=== PATIENT | male | born 1935 | race Caucasian/White ===

== ENCOUNTER 2022-12-06 20:50 | Inpatient (IN) ==
[2022-12-06 22:02] LABS: Basophils # (auto) 0.02 K/uL (0-0.2); Basophils % (auto) 0.2 %; Eosinophils # (auto) 0.02 K/uL (0-0.50); Eosinophils % (auto) 0.2 %; Hemoglobin 9.2 g/dl (14.0-18.0); Immature Granulocytes # (auto) 0.02 K/uL (0.01-0.20); Immature Granulocytes % (auto) 0.2 %; Lymphocytes # (auto) 1.01 K/uL (1.2-3.4); Lymphocytes % (auto) 12.6 %; Mean Corpuscular Hemoglobin 28.8 pg (25.0-34.0); Mean Corpuscular Hgb Conc 32.9 g/dL (32.0-36.0); Mean Corpuscular Volume 87.8 fL (80.0-100.0); Monocytes # (auto) 0.42 K/uL (0.11-0.59); Monocytes % (auto) 5.2 %; Neutrophils # (auto) 6.52 K/uL (1.40-6.50); Neutrophils % (auto) 81.6 %; Platelet Count 235 K/uL (130-400); RDW Coefficient of Variation 13.5 % (11.5-14.5); RDW Standard Deviation 43.5 fL (36.4-46.3); Red Blood Count 3.19 M/uL (4.70-6.10); White Blood Count 8.01 K/ul (4.8-10.8)
[2022-12-06 22:09] LABS: Alanine Aminotransferase 15 U/L (7-52); Albumin Globulin Ratio 1.2 (0.9-2); Alkaline Phosphatase 36 U/L (34-104); Anion Gap 7 (3-11); Aspartate Aminotransferase 16 U/L (13-39); BUN Creatinine Ratio 15.1 (10-20); Bilirubin,Total 0.8 mg/dl (0.2-1.0); Blood Urea Nitrogen 30 mg/dl (6-23); Carbon Dioxide 22 mmol/L (21-32); Chloride 110 mmol/L (98-107); Est GFR (African American) 33.5 ml/min; Est GFR (Non-African American) 28.9 ml/min; Globulin 2.5 gm/dl (2.5-4.0); Glucose 112 mg/dl (70-99(Fasting)); Sodium 139 mmol/L (136-145); Total Protein 5.5 gm/dl (6.0-8.3)
--- NOTE | 2022-12-06 22:17 | Emergency Department Note ---
Impression & Plan Small bowel perforation, Urinary retention, Free intraperitoneal air, Abdominal pain ED Provider Note NAME: NEVIN STATON AGE: 87 SEX: M : 1935 ARRIVES VIA: Walk-In INFORMANT: [Patient][, ] ED PROVIDER(S): [Fabrice Harris MD] CHIEF COMPLAINT: Abdominal pain, inability to urinate MEDICAL DECISION MAKING: Patient presented due to concern with abdominal pain and inability to urinate. The patient has had some prior issues in the past. Patient did have a bladder scan performed which showed 300 cc of urine. Barker catheter was placed. Upon subsequent reexamination of the abdomen he still had abdominal pain so the patient did have a CT of the abdomen pelvis performed. The patient CT the abdomen pelvis did show concern for bowel perforation. The patient was ordered IV Zosyn and blood cultures. Patient's initial blood counts did show a normal white count with a hemoglobin of 9. The patient's platelet count was unremarkable. Kidney function with creatinine 1.9 which is more or less at baseline. Calcium slightly low at 8. Urinalysis without evidence of obvious infection in the patient's Barker catheter was draining well. Initial lactate of 0.8. I did speak with on-call general surgery Dr. Alfonso who did come to evaluate the patient. I subsequently did speak with the on-call medicine service Dr. Silva. The patient was admitted to the medicine service Prior /Outside records reviewed: [none] Differential diagnosis: Appendicitis, testicular torsion, infections, diverticulitis, UTI, obstruction, mesenteric ischemia, aortic pathology, inflammatory bowel disease, renal colic, PUD, pancreatitis, biliary pathology, hernia, volvulus, constipation, as well as other pathologies. Diagnostics, as interpreted by me: ECG: [none] Cardiac monitoring: An order was placed for continuous cardiac monitoring. The monitor shows a rate of [] with [] rhythm. [Patient was placed on pulse oximetry] Medical decision rules: [none] Imaging studies: See below HPI: Patient presents due to concern for inability to urinate since last evening. The patient does complain of associated abdominal pain. No recent falls or trauma. The patient is a prior issues with urinary retention and states that in the past he did have some sort of problem which subsequently resulted in a procedure. The patient does complain of abdominal pain that is relatively diffuse but more prominent in suprapubic area. No fevers or chills chest pains or shortness of breath. The patient does not take anything for symptoms at home. Patient typically urinates without any issues. No reported blood in the urine or stool. PAST MEDICAL HISTORY: [See Below] PAST SURGICAL HISTORY: [See Below] SOCIAL HISTORY: [See Below] HOME MEDICATIONS: [See Below] ALLERGIES: [See Below] VITALS: [See Below] PHYSICAL EXAMINATION: GENERAL: NAD, non-toxic. Wearing glasses, hard of hearing. EYE EXAM: Normal conjunctiva. PERRL, no anisocoria and EOM's grossly intact w/o pain. NECK: Supple, no nuchal rigidity, no adenopathy, non-tender. No signs of meningismus. FROM of the neck with good chin to chest and neck extension. No stridor. LUNGS: Clear to auscultation. Normal chest wall mechanics. HEART: NSR, no MRG. ABDOMEN: Abdomen soft, mild diffuse discomfort throughout most prominent in the suprapubic area, no masses, no rebound or guarding. BACK: No CVA TTP. SKIN: No rashes and no bruising. UPPER EXTREMITIES: Upper extremities are grossly normal. LOWER EXTREMITIES: Grossly normal, no edema. NEURO EXAM: A&O x3, cranial nerves II-XII grossly intact, normal speech, moves all 4 extremities. Past Med/Surg History Medical History (Updated 12/11/22 @ 15:00 by Fabrice Harris MD) Carotid artery disease Encounter for pre-operative examination Free intraperitoneal air Hypertension Surgical History (Updated 12/11/22 @ 15:00 by Fabrice Harris MD) No pertinent past surgical history Social History Smoking Status: Former smoker Do You Dip or Chew Tobacco: No; Hx Alcohol Use: Yes Alcohol type: beer, wine and hard liquor Hx Substance Use: No Preferred Language: Luxembourgish Communication Ability: Effective [employer] Required: No Beliefs That Will Affect Care: None Current Living Situation: Alone Current Living Situation Comment: Pt lives alone. Daughter, Parker, lives close by. Other Information That Helps Us Care for You: No Feels Safe at Home: Yes Safety Concerns: Feels Safe At This Time Assistive Devices: None Allergies Allergies Allergy/AdvReac Type Severity Reaction Status Date / Time Iodinated Contrast Media Allergy Unknown renal Verified 12/06/22 22:08 complications Home Meds Home Medications Medication Instructions Recorded Confirmed aspirin 81 mg chewable tablet 81 mg PO DAILY 12/06/22 12/06/22 atorvastatin 80 mg tablet 80 mg PO DAILY 12/06/22 12/06/22 clopidogrel 75 mg tablet 75 mg PO DAILY 12/06/22 12/06/22 ezetimibe 10 mg tablet 10 mg PO DAILY 12/06/22 12/06/22 metoprolol succinate 25 mg 12.5 mg PO QAM 12/06/22 12/06/22 tablet,extended release 24 hr multivitamin 1 tab PO DAILY 12/06/22 12/06/22 nitroglycerin 0.4 mg sublingual 0.4 mg sublingual UD PRN Chest Pain 12/06/22 12/06/22 tablet tamsulosin 0.4 mg capsule 0.4 mg PO QAM 12/06/22 12/06/22 Previous Rx's Medication Instructions Recorded sulfamethoxazole 800 1 tab PO Q24H 5 days #5 tabs 12/11/22 mg-trimethoprim 160 mg tablet (Bactrim DS) Results & Data (ED) Vital Signs Vital Signs - 24 hr 12/06/22 21:12 12/06/22 22:08 Temperature 36.5 C Temperature Source Temporal Artery Scan Pulse Rate 104 H Pulse Rate [Finger] 70 Pulse Rhythm [Finger] Regular Pulse Strength [Finger] Normal Respiratory Rate 18 20 Respiratory Effort / Characteristics Non-Labored Spontaneous Respiratory Depth Normal Respiratory Pattern Regular Blood Pressure 83/51 L Blood Pressure [Left Arm] 123/64 Blood Pressure Mean 61 Blood Pressure Mean [Left Arm] 83 Pulse Oximetry 93 Oxygen Delivery Method Room Air Room Air Sepsis Recent Fever Within 48 Hours No Sepsis New/Unexplained Change in Mental Status No Sepsis Action Taken by Nursing No Action Required Home Medications Current Medication List: was personally reviewed by me Laboratory Data Attestation: I reviewed the patient's lab results. 12/06/22 21:28 12/06/22 21:28 Lab Results 12/06/22 12/06/22 12/06/22 Range/Units 21:28 21:28 22:43 WBC 8.01 (4.8-10.8) K/ul RBC 3.19 L (4.70-6.10) M/uL Hgb 9.2 L (14.0-18.0) g/dl Hct 28.0 L (42.0-52.0) % MCV 87.8 (80.0-100.0) fL MCH 28.8 (25.0-34.0) pg MCHC 32.9 (32.0-36.0) g/dL RDW Std Deviation 43.5 (36.4-46.3) fL RDW Coeff of Gloria 13.5 (11.5-14.5) % Plt Count 235 (130-400) K/uL MPV 10.0 (9.4-12.4) fL Immature Gran % (Auto) 0.2 % Neut % (Auto) 81.6 % Lymph % (Auto) 12.6 % [place] % (Auto) 5.2 % Eos % (Auto) 0.2 % Baso % (Auto) 0.2 % Neut # (Auto) 6.52 H (1.40-6.50) K/uL Lymph # (Auto) 1.01 L (1.2-3.4) K/uL [place] # (Auto) 0.42 (0.11-0.59) K/uL Eos # (Auto) 0.02 (0-0.50) K/uL Baso # (Auto) 0.02 (0-0.2) K/uL Immature Gran # (Auto) 0.02 (0.01-0.20) K/uL Sodium 139 (136-145) mmol/L Potassium 4.0 (3.5-5.1) mmol/L Chloride 110 H (98-107) mmol/L Carbon Dioxide 22 (21-32) mmol/L Anion Gap 7 (3-11) BUN 30 H (6-23) mg/dl Creatinine 1.99 H (0.6-1.4) mg/dl Est Cr Clr Drug Dosing Not Reportable Est GFR ( Amer) 33.5 ml/min Est GFR (Non-Af Amer) 28.9 ml/min BUN/Creatinine Ratio 15.1 (10-20) Glucose 112 H (70-99(Fasting)) mg/dl Estimat Average Glucose mg/dl Hemoglobin A1c (4.5-5.6) % Lactate (0.4-2.0) mmol/L Calcium 8.0 L (8.6-10.3) mg/dl Magnesium 1.8 (1.7-2.4) mg/dl Total Bilirubin 0.8 (0.2-1.0) mg/dl AST 16 (13-39) U/L ALT 15 (7-52) U/L Alkaline Phosphatase 36 (34-104) U/L Total Protein 5.5 L (6.0-8.3) gm/dl Albumin 3.0 L (3.4-5.0) gm/dl Globulin 2.5 (2.5-4.0) gm/dl Albumin/Globulin Ratio 1.2 (0.9-2) Urine Color Yellow Urine Appearance Clear (Clear) Urine pH 5.5 (4.5-7.5) Ur Specific [place] 1.020 (1.000-1.030) Urine Protein Trace H (Negative) Urine Glucose (UA) Negative (Negative) Urine Ketones Negative (Negative) Urine Blood Trace H (Negative) Urine Nitrite Negative (Negative) Urine Bilirubin Negative (Negative) Urine Urobilinogen Negative (Negative) Ur Leukocyte Esterase Negative (Negative) Urine WBC (Auto) 0 (0-5) /hpf Urine RBC (Auto) 0-4 (0-4) /hpf U Hyaline Cast (Auto) 1-5 (0-5) /lpf U Epithel Cells (Auto) 0-5 (0-5) /lpf Urine Bacteria (Auto) Negative (Negative) Blood Type Antibody Screen 12/07/22 12/07/22 12/07/22 Range/Units 00:26 00:26 00:26 WBC (4.8-10.8) K/ul RBC (4.70-6.10) M/uL Hgb (14.0-18.0) g/dl Hct (42.0-52.0) % MCV (80.0-100.0) fL MCH (25.0-34.0) pg MCHC (32.0-36.0) g/dL RDW Std Deviation (36.4-46.3) fL RDW Coeff of Gloria (11.5-14.5) % Plt Count (130-400) K/uL MPV (9.4-12.4) fL Immature Gran % (Auto) % Neut % (Auto) % Lymph % (Auto) % [place] % (Auto) % Eos % (Auto) % Baso % (Auto) % Neut # (Auto) (1.40-6.50) K/uL Lymph # (Auto) (1.2-3.4) K/uL [place] # (Auto) (0.11-0.59) K/uL Eos # (Auto) (0-0.50) K/uL Baso # (Auto) (0-0.2) K/uL Immature Gran # (Auto) (0.01-0.20) K/uL Sodium (136-145) mmol/L Potassium (3.5-5.1) mmol/L Chloride (98-107) mmol/L Carbon Dioxide (21-32) mmol/L Anion Gap (3-11) BUN (6-23) mg/dl Creatinine (0.6-1.4) mg/dl Est Cr Clr Drug Dosing Est GFR ( Amer) ml/min Est GFR (Non-Af Amer) ml/min BUN/Creatinine Ratio (10-20) Glucose (70-99(Fasting)) mg/dl Estimat Average Glucose 111 mg/dl Hemoglobin A1c 5.5 (4.5-5.6) % Lactate 0.8 (0.4-2.0) mmol/L Calcium (8.6-10.3) mg/dl Magnesium (1.7-2.4) mg/dl Total Bilirubin (0.2-1.0) mg/dl AST (13-39) U/L ALT (7-52) U/L Alkaline Phosphatase (34-104) U/L Total Protein (6.0-8.3) gm/dl Albumin (3.4-5.0) gm/dl Globulin (2.5-4.0) gm/dl Albumin/Globulin Ratio (0.9-2) Urine Color Urine Appearance (Clear) Urine pH (4.5-7.5) Ur Specific [place] (1.000-1.030) Urine Protein (Negative) Urine Glucose (UA) (Negative) Urine Ketones (Negative) Urine Blood (Negative) Urine Nitrite (Negative) Urine Bilirubin (Negative) Urine Urobilinogen (Negative) Ur Leukocyte Esterase (Negative) Urine WBC (Auto) (0-5) /hpf Urine RBC (Auto) (0-4) /hpf U Hyaline Cast (Auto) (0-5) /lpf U Epithel Cells (Auto) (0-5) /lpf Urine Bacteria (Auto) (Negative) Blood Type A Negative Antibody Screen NEGATIVE Administered Medications Discontinued Medications Acetaminophen (Acetaminophen 325 Mg Tab) 650 mg PO Q6H PRN PRN Reason: Fever/pain Stop: 01/06/23 08:19 Last Admin: 12/09/22 15:42 Dose: 650 mg Documented By: DOMI Aspirin (Aspirin 81 Mg Chew) 81 mg PO DAILY MANI Stop: 01/06/23 08:59 Last Admin: 12/11/22 07:48 Dose: 81 mg Documented By: Admin: 12/10/22 09:17 Dose: 81 mg Documented By: Admin: 12/09/22 08:27 Dose: 81 mg Documented By: Admin: 12/08/22 12:38 Dose: 81 mg Documented By: Admin: 12/07/22 10:43 Dose: 81 mg Documented By: GURU Atorvastatin Calcium (Atorvastatin 40 Mg Tab) 80 mg PO DAILY [facility] Stop: 01/06/23 08:59 Last Admin: 12/11/22 07:45 Dose: 80 mg Documented By: Admin: 12/10/22 09:10 Dose: 80 mg Documented By: Admin: 12/09/22 08:25 Dose: 80 mg Documented By: Admin: 12/08/22 12:37 Dose: 80 mg Documented By: Admin: 12/07/22 10:42 Dose: 80 mg Documented By: GURU Bupivacaine HCl (Bupivacaine 0.5 % 5 Mg/1 Ml Mpf 30ml Vial) Confirm Administered Dose 30 ml .ROUTE .STK-MED ONE Stop: 12/07/22 02:01 Last Admin: 12/07/22 04:31 Dose: 30 ml Documented By: ROBERT Clopidogrel Bisulfate (Clopidogrel Bisulfate 75 Mg Tab) 75 mg PO DAILY [facility] Stop: 01/06/23 08:59 Last Admin: 12/11/22 07:45 Dose: 75 mg Documented By: Admin: 12/10/22 09:10 Dose: 75 mg Documented By: Admin: 12/09/22 08:24 Dose: 75 mg Documented By: Admin: 12/08/22 12:35 Dose: 75 mg Documented By: Admin: 12/07/22 10:43 Dose: 75 mg Documented By: GURU Ezetimibe (Ezetimibe 10 Mg Tablet) 10 mg PO DAILY MANI Stop: 01/06/23 08:59 Last Admin: 12/11/22 07:45 Dose: 10 mg Documented By: Admin: 12/10/22 09:11 Dose: 10 mg Documented By: Admin: 12/09/22 08:24 Dose: 10 mg Documented By: Admin: 12/08/22 12:38 Dose: 10 mg Documented By: Admin: 12/07/22 10:42 Dose: 10 mg Documented By: GURU Hydromorphone HCl (Hydromorphone Inj 0.5 Mg/0.5 Ml Syr) 0.25 mg IV Q6H PRN PRN Reason: Pain Stop: 12/21/22 00:35 Last Admin: 12/07/22 18:48 Dose: 0.25 mg Documented By: Admin: 12/07/22 05:43 Dose: 0.25 mg Documented By: DARREN Piperacillin Sod/Tazobactam Sod (Zosyn) 4.5 gm in 120 mls @ 240 mls/hr IV NOW STA; Protocol Stop: 12/07/22 00:46 Last Infusion: 12/07/22 01:38 Dose: 0 mls/hr Documented By: Admin: 12/07/22 00:38 Dose: 240 mls/hr Documented By: ERIKA Sodium Chloride (Nss 1000ml) 1,000 mls @ 200 mls/hr IV .Q5H ONE Stop: 12/07/22 06:17 Last Admin: 12/07/22 06:36 Dose: Not Given Documented By: DARREN Sodium Chloride (Nss 1000ml) 1,000 mls @ 100 mls/hr IV .Q10H ONE Stop: 12/07/22 11:18 Last Infusion: 12/07/22 06:36 Dose: 0 mls/hr Documented By: Admin: 12/07/22 05:29 Dose: 100 mls/hr Documented By: DARREN Piperacillin Sod/Tazobactam (Sod 4.5 gm/ Dextrose) 120 mls @ 30 mls/hr IV Q8H MANI; Protocol Stop: 12/17/22 07:59 Last Infusion: 12/09/22 10:34 Dose: 0 mls/hr Documented By: Admin: 12/09/22 08:23 Dose: 30 mls/hr Documented By: Infusion: 12/09/22 04:16 Dose: 0 mls/hr Documented By: Admin: 12/09/22 00:04 Dose: 30 mls/hr Documented By: JAyo Infusion: 12/08/22 19:54 Dose: 0 mls/hr Documented By: Admin: 12/08/22 15:44 Dose: 30 mls/hr Documented By: Infusion: 12/08/22 12:01 Dose: 0 mls/hr Documented By: Admin: 12/08/22 08:01 Dose: 30 mls/hr Documented By: Infusion: 12/08/22 04:32 Dose: 0 mls/hr Documented By: Admin: 12/07/22 23:45 Dose: 30 mls/hr Documented By: Infusion: 12/07/22 21:45 Dose: 0 mls/hr Documented By: Admin: 12/07/22 17:45 Dose: 30 mls/hr Documented By: Infusion: 12/07/22 11:56 Dose: 0 mls/hr Documented By: Admin: 12/07/22 07:40 Dose: 30 mls/hr Documented By: ES Sodium Chloride (Nss 1000ml) 1,000 mls @ 75 mls/hr IV .[id number] MANI Stop: 01/06/23 06:16 Last Infusion: 12/09/22 07:17 Dose: 0 mls/hr Documented By: Infusion: 12/08/22 20:23 Dose: 0 mls/hr Documented By: Admin: 12/08/22 08:02 Dose: 75 mls/hr Documented By: Infusion: 12/08/22 08:02 Dose: 75 mls/hr Documented By: Admin: 12/07/22 18:44 Dose: 75 mls/hr Documented By: Infusion: 12/07/22 18:44 Dose: 75 mls/hr Documented By: Admin: 12/07/22 06:36 Dose: 75 mls/hr Documented By: AMB Ceftriaxone Sodium 2,000 mg/ (Dextrose) 70 mls @ 140 mls/hr IV Q24H MANI; Protocol Stop: 12/19/22 10:59 Last Admin: 12/10/22 12:09 Dose: Not Given Documented By: Infusion: 12/09/22 11:31 Dose: 0 mls/hr Documented By: Admin: 12/09/22 10:38 Dose: 140 mls/hr Documented By: DOMI Metronidazole (Flagyl) 500 mg in 100 mls @ 100 mls/hr IV Q8H [facility]; Protocol Stop: 12/19/22 15:59 Last Infusion: 12/10/22 10:28 Dose: 0 mls/hr Documented By: Admin: 12/10/22 09:10 Dose: 100 mls/hr Documented By: Infusion: 12/10/22 00:11 Dose: 0 mls/hr Documented By: JUSTINA(2) Admin: 12/09/22 23:11 Dose: 100 mls/hr Documented By: JUSTINA(2) Infusion: 12/09/22 16:53 Dose: 0 mls/hr Documented By: Admin: 12/09/22 15:35 Dose: 100 mls/hr Documented By: DOMI Lidocaine HCl (Lidocaine 2% Jelly 5 Ml Tube) 10 ml EXT NOW ONE Stop: 12/06/22 22:27 Last Admin: 12/06/22 22:50 Dose: 10 ml Documented By: ERIKA Menthol (Cough Drop (Sugar Free) Danica 24 Danica/1 Box) Confirm Administered Dose 24 danica BUCCAL .STK-MED ONE Stop: 12/08/22 12:20 Last Admin: 12/08/22 13:37 Dose: 24 danica Documented By: YOLI Metoprolol Succinate (Metoprolol Succ 25mg Ext Rel Tab) 12.5 mg PO QAM [facility] Stop: 01/06/23 08:59 Last Admin: 12/11/22 07:44 Dose: 12.5 mg Documented By: Admin: 12/10/22 09:10 Dose: 12.5 mg Documented By: Admin: 12/09/22 08:24 Dose: 12.5 mg Documented By: Admin: 12/08/22 12:35 Dose: 12.5 mg Documented By: Admin: 12/07/22 10:42 Dose: 12.5 mg Documented By: GURU Metoprolol Tartrate (Metoprolol Tartrate 1 Mg/Ml Vial) 2.5 mg IV Q6 [facility] Stop: 01/06/23 05:59 Last Admin: 12/07/22 07:08 Dose: 2.5 mg Documented By: DARREN Multivitamins (Multivitamin Tab) 1 tab PO DAILY MANI Stop: 01/06/23 08:59 Last Admin: 12/11/22 07:45 Dose: 1 tab Documented By: Admin: 12/10/22 09:10 Dose: 1 tab Documented By: Admin: 12/09/22 08:24 Dose: 1 tab Documented By: Admin: 12/08/22 12:37 Dose: 1 tab Documented By: Admin: 12/07/22 10:42 Dose: 1 tab Documented By: GURU Tamsulosin HCl (Tamsulosin Hcl 0.4 Mg Cap) 0.4 mg PO QAM [facility] Stop: 01/06/23 08:59 Last Admin: 12/11/22 07:44 Dose: 0.4 mg Documented By: Admin: 12/10/22 09:10 Dose: 0.4 mg Documented By: Admin: 12/09/22 08:25 Dose: 0.4 mg Documented By: Admin: 12/08/22 12:37 Dose: 0.4 mg Documented By: Admin: 12/07/22 10:42 Dose: 0.4 mg Documented By: GURU Tramadol HCl (Tramadol Hcl 50 Mg Tablet) 25 - 50 mg PO Q4H PRN PRN Reason: Pain Stop: 01/06/23 08:19 Last Admin: 12/07/22 10:41 Dose: 50 mg Documented By: GURU Trimethoprim/Sulfamethoxazole (Sulfamethoxazole/Trimethoprim Ds 800/160mg Tab) 1 tab PO Q24H [facility] Stop: 12/20/22 12:59 Last Admin: 12/11/22 10:42 Dose: 1 tab Documented By: Admin: 12/10/22 12:58 Dose: 1 tab Documented By: DOMI Imaging Data Radiologist's Impression: Abdomen/Pelvis CT 12/06/22 23:01 CR Exam(s): CT ABDOMEN + PELVIS Without Contrast EXAM: CT Abdomen and Pelvis Without Intravenous Contrast CLINICAL HISTORY: Reason for exam: recent urinary retention s/p Barker, single kidney. TECHNIQUE: Axial computed tomography images of the abdomen and pelvis without intravenous contrast. Automated exposure control was utilized for the study. A dose lowering technique was utilized adhering to the principles of ALARA. COMPARISON: No relevant prior studies available. FINDINGS: Lung bases: Unremarkable. No mass. No consolidation. ABDOMEN: Liver: Unremarkable. Gallbladder and bile ducts: Unremarkable. No calcified stones. No ductal dilation. Pancreas: Unremarkable. No ductal dilation. Spleen: Unremarkable. No splenomegaly. Adrenals: Unremarkable. No mass. Kidneys and ureters: Right nephrectomy. Stomach and bowel: Unremarkable. No obstruction. No mucosal thickening. PELVIS: Appendix: No findings to suggest acute appendicitis. Bladder: Barker catheter terminates in the urinary bladder. No stones. Reproductive: Unremarkable as visualized. ABDOMEN and PELVIS: Intraperitoneal space: Free air in the abdomen, concerning for gastrointestinal perforation. Small bowel in the right lower quadrant demonstrates wall thickening and surrounding inflammation, concerning for perforation site. Surgical evaluation recommended. No significant fluid collection. Bones/joints: Degenerative changes of the spine. No acute fracture. No dislocation. Soft tissues: Unremarkable. Vasculature: Atherosclerotic changes of the aorta. No abdominal aortic aneurysm. Lymph nodes: Unremarkable. No enlarged lymph nodes. IMPRESSION: Free air in the abdomen, concerning for gastrointestinal perforation. Small bowel in the right lower quadrant demonstrates wall thickening and surrounding inflammation, concerning for perforation site. Surgical evaluation recommended. Communications: Call Doctor Other Electronically signed by: Danny Nichols MD 12/06/22 23:39 PM Chest X-Ray 12/07/22 00:09 XR chest 1V portable HISTORY: renal failure COMPARISON: Abdomen and pelvis CT 12/06/2022. FINDINGS: No pneumothorax. No pleural effusions. There is mild elevation the right hemidiaphragm. The heart is mildly enlarged. No focal lung consolidations to suggest a pneumonia. No evidence for pulmonary edema. No pleural effusions. No pneumothorax. A right carotid stent is partially visualized. IMPRESSION: Mild cardiomegaly. Otherwise, no acute process within the chest. ACT 112: Negative or not required by law. Electronically signed by: Yosvany Salazar M.D. 12/07/2022 8:39 AM Discharge Plan Visit Data Chief Complaint: Unable to Void Stated Complaint: UNABLE TO VOID, CONFUSION, HIGH RISK FOR STROKE ED Provider: Fabrice Harris Discharge Problem: Small bowel perforation, Urinary retention, Free intraperitoneal air, Abdominal pain Patient Disposition: Admitted As Inpatient Discharge Instructions Interventions: ED Discharge Assessment Last Done: 12/07/22 01:58
[2022-12-06] MEDS ORDERED: LIDOCAINE 2% JELLY 5 ML TUBE EXT ONE (22:26)
[2022-12-06 22:53] LABS: Appearance Urine Clear (Clear); Bacteria Urine Automated Negative (Negative); Bilirubin Urine Negative (Negative); Blood Urine Trace (Negative); Color Urine Yellow; Epithelial Cell Urine Auto 0-5 /lpf (0-5); Glucose Urine UA Negative (Negative); Ketones Urine Negative (Negative); Leukocyte Esterase Urine Negative (Negative); Nitrite Urine Negative (Negative); Protein Urine Trace (Negative); RBC Urine Automated 0-4 /hpf (0-4); Urobilinogen Urine Negative (Negative); WBC Urine Automated 0 /hpf (0-5); pH Urine 5.5 (4.5-7.5)
--- NOTE | 2022-12-06 23:41 | CT Scan Report ---
Exam(s): CT ABDOMEN + PELVIS Without Contrast EXAM: CT Abdomen and Pelvis Without Intravenous Contrast CLINICAL HISTORY: Reason for exam: recent urinary retention s/p Barker, single kidney. TECHNIQUE: Axial computed tomography images of the abdomen and pelvis without intravenous contrast. Automated exposure control was utilized for the study. A dose lowering technique was utilized adhering to the principles of ALARA. COMPARISON: No relevant prior studies available. FINDINGS: Lung bases: Unremarkable. No mass. No consolidation. ABDOMEN: Liver: Unremarkable. Gallbladder and bile ducts: Unremarkable. No calcified stones. No ductal dilation. Pancreas: Unremarkable. No ductal dilation. Spleen: Unremarkable. No splenomegaly. Adrenals: Unremarkable. No mass. Kidneys and ureters: Right nephrectomy. Stomach and bowel: Unremarkable. No obstruction. No mucosal thickening. PELVIS: Appendix: No findings to suggest acute appendicitis. Bladder: Barker catheter terminates in the urinary bladder. No stones. Reproductive: Unremarkable as visualized. ABDOMEN and PELVIS: Intraperitoneal space: Free air in the abdomen, concerning for gastrointestinal perforation. Small bowel in the right lower quadrant demonstrates wall thickening and surrounding inflammation, concerning for perforation site. Surgical evaluation recommended. No significant fluid collection. Bones/joints: Degenerative changes of the spine. No acute fracture. No dislocation. Soft tissues: Unremarkable. Vasculature: Atherosclerotic changes of the aorta. No abdominal aortic aneurysm. Lymph nodes: Unremarkable. No enlarged lymph nodes. IMPRESSION: Free air in the abdomen, concerning for gastrointestinal perforation. Small bowel in the right lower quadrant demonstrates wall thickening and surrounding inflammation, concerning for perforation site. Surgical evaluation recommended. Communications: Call Doctor Other Electronically signed by: Danny Nichols MD 12/06/22 23:39 PM
[2022-12-06] MEDS ORDERED: PIPERACILLIN/TAZOBACTAM 4.5 GM in DEXTROSE 5% 100 ML IV STA (23:52)
[2022-12-07] MEDS ORDERED: PIPERACILLIN/TAZOBACTAM 4.5 GM/120 ML BAG IV STA (00:17)
--- NOTE | 2022-12-07 00:31 | History & Physical Report ---
Date of Service December 07, 2022 Assessment & Plan (1) Hypotension: Plan: Transient hypotension possibly from hypovolemia secondary to bowel perforation No overt sepsis for now chronic diastolic heart failure (EF 58%, TTE 2019), patient on the dry side valvular heart disease (mild to moderate /mild MR) carotid artery disease status post stent/endarterectomy hyperlipidemia on statin Rx RCCA status post surgery history laryngeal cancer status post radiation CRI, creatinine at baseline chronic anemia, hemoglobin at baseline Hyperglycemia rule out DM past tobacco abuse PCU given transient hypotension IVF Zosyn N.p.o. General surgery consultation RE perforated bowel (Patient currently being seen by Dr. Alfonso at the ER.) Check hemoglobin A1c DVT prophylaxis. SCD RE possible surgery Recommend pharmacologic anticoagulation with heparin subcu once bleeding risk is deemed to be minimal and negligible pending Surgery evaluation. Full code Patient daughter requesting updates from providers. Ms. Parker Curiel, contact #[phone]. Text document was generated using [employer] voice recognition software. It may contain grammatical or spelling errors. Kindly contact undersigned for clarification of any documentation item in question. History of Present Illness Chief Complaint: Abdominal pain Primary Care Provider: Ryan Butler DO History obtained from patient, family, and records. Medical history significant for chronic diastolic heart failure (EF 58%, TTE 2020), valvular heart disease (mild to moderate /mild MR), carotid artery disease status post stent/endarterectomy, hypertension, hyperlipidemia, RCCA status post surgery, history laryngeal cancer status post radiation, CRI (baseline creatinine 1.7-2), chronic anemia (baseline hemoglobin of 9), past tobacco abuse. 2 nights ago, patient experienced achy lower abdominal pain with diarrhea after coming home from a celebration. Patient not sure if there was blood in the stools. Patient denies headache, chest pain, SOB. Patient consulted ER for worsening symptoms. IV Zosyn administered for perforated bowel on CT. Initial SBP at the ER noted to be 80s. SBP currently 120s. Medical History as above Surgical History : Nephrectomy right, cataract surgeries, vascular procedure, endarterectomy Family History : Heart disease, lung cancer Personal/Social history : Past tobacco abuse, occasional EtOH intake, retired [employer] employee Allergies Allergy/AdvReac Type Severity Reaction Status Date / Time Iodinated Contrast Media Allergy Unknown renal Verified 12/06/22 22:08 complications Home Medications Medication Instructions Recorded Confirmed Type aspirin 81 mg chewable tablet 81 mg PO DAILY 12/06/22 12/06/22 History atorvastatin 80 mg tablet 80 mg PO DAILY 12/06/22 12/06/22 History clopidogrel 75 mg tablet 75 mg PO DAILY 12/06/22 12/06/22 History ezetimibe 10 mg tablet 10 mg PO DAILY 12/06/22 12/06/22 History metoprolol succinate 25 mg 12.5 mg PO QAM 12/06/22 12/06/22 History tablet,extended release 24 hr multivitamin 1 tab PO DAILY 12/06/22 12/06/22 History nitroglycerin 0.4 mg sublingual 0.4 mg sublingual UD PRN Chest Pain 12/06/22 12/06/22 History tablet tamsulosin 0.4 mg capsule 0.4 mg PO QAM 12/06/22 12/06/22 History Past Med/Surg History Medical History (Updated 12/07/22 @ 08:28 by Lawrence Silva MD) Carotid artery disease Encounter for pre-operative examination Free intraperitoneal air Hypertension Social History Smoking Status: Former smoker Do You Dip or Chew Tobacco: No; Hx Alcohol Use: Yes Alcohol type: beer, wine and hard liquor Hx Substance Use: No Preferred Language: Welsh Communication Ability: Effective Lining Presser Required: No Beliefs That Will Affect Care: None Current Living Situation: Alone Current Living Situation Comment: Pt lives alone. Daughter, Parker, lives close by. Other Information That Helps Us Care for You: No Feels Safe at Home: Yes Safety Concerns: Feels Safe At This Time Assistive Devices: Denture - Upper, Denture - Lower, Glasses and Hearing Aid - Bilateral Review of Systems Review of Systems: As per HPI, all other systems reviewed and negative Physical Exam Physical Exam: GENERAL: Comfortable, hard of hearing, dysphonic (chronic), looks younger than stated age, no respiratory distress SKIN: Pallor, warm HEENT: Bespectacled, pale palpebral conjunctivae, no ptosis, dry buccal mucosa NECK : Supple, no tenderness CHEST : CTA, no tenderness HEART : RRR, systolic murmur ABDOMEN: Some distention, hypogastric tenderness EXTREMITIES : No LE swelling/tenderness, no other conspicuous deformities noted NEUROLOGIC : Coherent, no facial asymmetry, hard of hearing, chronic dysphonia, no other gross focality Results & Data Results & Data Vital Signs (Past 12 Hours) Vital Signs Temp Pulse Pulse Resp BP BP Pulse Ox 12/06/22 22:08 70 20 123/64 93 12/06/22 21:12 36.5 C 104 H 18 83/51 L O2 Del Method 12/06/22 22:08 Room Air 12/06/22 21:12 Room Air Laboratory Results Laboratory Results WBC 8.01 K/ul (4.8-10.8) 12/06/22 21: RBC 3.19 M/uL (4.70-6.10) L 12/06/22 21: Hgb 9.2 g/dl (14.0-18.0) L 12/06/22: Hct 28.0 % (42.0-52.0) L 12/06/22 21: MCV 87.8 fL (80.0-100.0) 12/06/22 21: MCH 28.8 pg (25.0-34.0) 12/06/22 21: MCHC 32.9 g/dL (32.0-36.0) 12/06/22: RDW Std Deviation 43.5 fL (36.4-46.3) 12/06/22: RDW Coeff of Gloria 13.5 % (11.5-14.5) 12/06/22 21: Plt Count 235 K/uL (130-400) 12/06/22: MPV 10.0 fL (9.4-12.4) 12/06/22 21: Immature Gran % (Auto) 0.2 % 12/06/22 21: Neut % (Auto) 81.6 % 12/06/22 21: Lymph % (Auto) 12.6 % 12/06/22: [place] % (Auto) 5.2 % 12/06/22 21: Eos % (Auto) 0.2 % 12/06/22 21: Baso % (Auto) 0.2 % 12/06/22: Neut # (Auto) 6.52 K/uL (1.40-6.50) H 12/06/22 21:28 Lymph # (Auto) 1.01 K/uL (1.2-3.4) L 12/06/22 21:28 [place] # (Auto) 0.42 K/uL (0.11-0.59) 12/06/22 21:28 Eos # (Auto) 0.02 K/uL (0-0.50) 12/06/22 21:28 Baso # (Auto) 0.02 K/uL (0-0.2) 12/06/22 21: Immature Gran # (Auto) 0.02 K/uL (0.01-0.20) 12/06/22 21: Sodium 139 mmol/L (136-145) 12/06/22 21: Potassium 4.0 mmol/L (3.5-5.1) 12/06/22: Chloride 110 mmol/L (98-107) H 12/06/22: Carbon Dioxide 22 mmol/L (21-32) 12/06/22: Anion Gap 7 (3-11) 12/06/22 21: BUN 30 mg/dl (6-23) H 12/06/22 21: Creatinine 1.99 mg/dl (0.6-1.4) H 12/06/22: Est Cr Clr Drug Dosing Not Reportable 12/06/22: Est GFR ( Amer) 33.5 ml/min 12/06/22: Est GFR (Non-Af Amer) 28.9 ml/min 12/06/22 21: BUN/Creatinine Ratio 15.1 (10-20) 12/06/22 21: Glucose 112 mg/dl (70-99(Fasting)) H 12/06/22: Calcium 8.0 mg/dl (8.6-10.3) L 12/06/22: Total Bilirubin 0.8 mg/dl (0.2-1.0) 12/06/22: AST 16 U/L (13-39) 12/06/22 21: ALT 15 U/L (7-52) 12/06/22 21: Alkaline Phosphatase 36 U/L (34-104) 12/06/22 21: Total Protein 5.5 gm/dl (6.0-8.3) L 12/06/22 21:28 Albumin 3.0 gm/dl (3.4-5.0) L 12/06/22 21:28 Globulin 2.5 gm/dl (2.5-4.0) 12/06/22 21:28 Albumin/Globulin Ratio 1.2 (0.9-2) 12/06/22 21:28 Urine Color Yellow 12/06/22 22:43 Urine Appearance Clear (Clear) 12/06/22 22:43 Urine pH 5.5 (4.5-7.5) 12/06/22 22:43 Ur Specific [place] 1.020 (1.000-1.030) 12/06/22 22:43 Urine Protein Trace (Negative) H 12/06/22 22:43 Urine Glucose (UA) Negative (Negative) 12/06/22 22:43 Urine Ketones Negative (Negative) 12/06/22 22:43 Urine Blood Trace (Negative) H 12/06/22 22:43 Urine Nitrite Negative (Negative) 12/06/22 22:43 Urine Bilirubin Negative (Negative) 12/06/22 22:43 Urine Urobilinogen Negative (Negative) 12/06/22 22:43 Ur Leukocyte Esterase Negative (Negative) 12/06/22 22:43 Urine WBC (Auto) 0 /hpf (0-5) 12/06/22 22:43 Urine RBC (Auto) 0-4 /hpf (0-4) 12/06/22 22:43 U Hyaline Cast (Auto) 1-5 /lpf (0-5) 12/06/22 22:43 U Epithel Cells (Auto) 0-5 /lpf (0-5) 12/06/22 22:43 Urine Bacteria (Auto) Negative (Negative) 12/06/22 22:43 Impressions Abdomen/Pelvis CT 12/06/22 23:01 CR Exam(s): CT ABDOMEN + PELVIS Without Contrast EXAM: CT Abdomen and Pelvis Without Intravenous Contrast CLINICAL HISTORY: Reason for exam: recent urinary retention s/p Barker, single kidney. TECHNIQUE: Axial computed tomography images of the abdomen and pelvis without intravenous contrast. Automated exposure control was utilized for the study. A dose lowering technique was utilized adhering to the principles of ALARA. COMPARISON: No relevant prior studies available. FINDINGS: Lung bases: Unremarkable. No mass. No consolidation. ABDOMEN: Liver: Unremarkable. Gallbladder and bile ducts: Unremarkable. No calcified stones. No ductal dilation. Pancreas: Unremarkable. No ductal dilation. Spleen: Unremarkable. No splenomegaly. Adrenals: Unremarkable. No mass. Kidneys and ureters: Right nephrectomy. Stomach and bowel: Unremarkable. No obstruction. No mucosal thickening. PELVIS: Appendix: No findings to suggest acute appendicitis. Bladder: Barker catheter terminates in the urinary bladder. No stones. Reproductive: Unremarkable as visualized. ABDOMEN and PELVIS: Intraperitoneal space: Free air in the abdomen, concerning for gastrointestinal perforation. Small bowel in the right lower quadrant demonstrates wall thickening and surrounding inflammation, concerning for perforation site. Surgical evaluation recommended. No significant fluid collection. Bones/joints: Degenerative changes of the spine. No acute fracture. No dislocation. Soft tissues: Unremarkable. Vasculature: Atherosclerotic changes of the aorta. No abdominal aortic aneurysm. Lymph nodes: Unremarkable. No enlarged lymph nodes. IMPRESSION: Free air in the abdomen, concerning for gastrointestinal perforation. Small bowel in the right lower quadrant demonstrates wall thickening and surrounding inflammation, concerning for perforation site. Surgical evaluation recommended. Communications: Call Doctor Other Electronically signed by: Danny Nichols MD 12/06/22 23:39 PM Diagnostic Findings Chest x-ray as per my interpretation cardiomegaly
[2022-12-07] MEDS ORDERED: PROMETHAZINE HCL 6.25 MG in SODIUM CHLORIDE 0.9% 50 ML IV PRN (00:36)
[2022-12-07] MEDS ORDERED: ACETAMINOPHEN 1,000 MG/100 ML VIAL IV PRN (00:36)
[2022-12-07 00:39] LABS: Magnesium 1.8 mg/dl (1.7-2.4)
--- NOTE | 2022-12-07 00:59 | Surgery Consultation ---
Date of Consultation December 07, 2022 Assessment & Plan (1) Free intraperitoneal air: 87 yr old man on plavix for severe carotid artery stenosis bilaterally now with intraperitoneal free air and mass in right lower quadrant. Tender on exam, no leukocytosis. Discussed options with patient and both daughters - this is a life threatening event and the etiology is unknown. The small bowel changes could be secondary to diverticular disease or malignancy or some other cause. It is also possible that the perforation is arising from elsewhere the in the intestine such as the stomach or colon. We discussed surgical intervention with exploratory laparotomy possible bowel resection possible ostomy. We did discuss that should the perforation be within the colon, he would require an ostomy which would likely be for lifetime. We reviewed risks of bleeding which is increased with his use of current Plavix, infection, leakage of the intestine, need for additional treatment should malignancy be found, prolonged hospital stay, . Other options were also discussed including intravenous antibiotics and assessing clinical response. There is not an extensive amount of free air and there is a potential that this perforation has sealed. However, if the perforation has not sealed, he would get worse and potentially have increased risks of surgery. He does have advanced directives but does feel as though he would want to proceed with surgery as soon as possible. Multiple questions were answered for the daughter and to their satisfaction. [facility] Consent was signed. Total time spent in reviewing chart, personally interpreting CT scan, writing this note, and examining and counseling patient was 50 minutes. History of Present Illness Reason for Consultation: intra-abdominal free air Requesting Physician: Lawrence Goodman MD Attending Physician: Lawrence Rivera MD History of Present Illness 87-year-old man who presents to the emergency room complaining of abdominal pain which began yesterday around 10:30 PM. The pain is sharp and acute and in the lower abdomen mainly on the right side. There were no precipitating factors. He has never had any prior similar symptoms. The pain is constant, moderate intensity, does not radiate. No relieving factors that he noted. No nausea or vomiting. Prior to the onset of the pain he had been eating and drinking normally. He denied any change in bowel habits. He denied any weight loss. He currently still has abdominal discomfort although less severe. He has not had any pain medication while in the emergency room. 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 In addition he has a history of throat cancer over 20 years ago for which she underwent radiation. His biggest risk factor is that of severe bilateral carotid artery stenosis, 1 side being recurrent through the stent. He is maintained on Plavix for this. He has been told he is at high risk of stroke. He is accompanied by his daughter today and his other daughter was brought in via speaker phone. Allergies Allergy/AdvReac Type Severity Reaction Status Date / Time Iodinated Contrast Media Allergy Unknown renal Verified 12/06/22 22:08 complications Home Medications Medication Instructions Recorded Confirmed Type aspirin 81 mg chewable tablet 81 mg PO DAILY 12/06/22 12/06/22 History atorvastatin 80 mg tablet 80 mg PO DAILY 12/06/22 12/06/22 History clopidogrel 75 mg tablet 75 mg PO DAILY 12/06/22 12/06/22 History ezetimibe 10 mg tablet 10 mg PO DAILY 12/06/22 12/06/22 History metoprolol succinate 25 mg 12.5 mg PO QAM 12/06/22 12/06/22 History tablet,extended release 24 hr multivitamin 1 tab PO DAILY 12/06/22 12/06/22 History nitroglycerin 0.4 mg sublingual 0.4 mg sublingual UD PRN Chest Pain 12/06/22 12/06/22 History tablet tamsulosin 0.4 mg capsule 0.4 mg PO QAM 12/06/22 12/06/22 History Patient History Social History Smoking Status: Former smoker Preferred Language: Bots[place] Feels Safe at Home: Yes Review of Systems Review of Systems: All systems reviewed & are unremarkable except as noted in HPI & below Genitourinary: + difficulty urinating Physical Exam Constitutional: WD/WN, vitals as above Eyes: + anicteric sclerae ENMT: hoarse voice Neck: normal visual inspection and trachea midline Respiratory: normal respiratory effort, lungs clear to auscultation Cardiovascular: RRR, no murmur, no edema Gastrointestinal (Abdomen): Inspection/Auscultation: abdomen normal to inspection, + abdomen distended (mild), normal bowel sounds and + abdominal surgical incision (right flank) Percussion/Palpation: + abdomen tender (right lower quadrant and midline lower abdomen) and abdomen soft; no guarding and no hernia Musculoskeletal: Extremities: extremities normal to inspection Neurologic: awake; no focal motor deficits Psychiatric: A+Ox3, euthymic affect Results & Data Vital Signs (Past 12 Hours) Vital Signs Temp Pulse Pulse Resp BP BP Pulse Ox 12/06/22 22:08 70 20 123/64 93 12/06/22 21:12 36.5 C 104 H 18 83/51 L O2 Del Method 12/06/22 22:08 Room Air 12/06/22 21:12 Room Air Laboratory Results 12/07/22 12/07/22 12/07/22 Range/Units 00:26 00:26 00:26 WBC (4.8-10.8) K/ul RBC (4.70-6.10) M/uL Hgb (14.0-18.0) g/dl Hct (42.0-52.0) % MCV (80.0-100.0) fL MCH (25.0-34.0) pg MCHC (32.0-36.0) g/dL RDW Std Deviation (36.4-46.3) fL RDW Coeff of Gloria (11.5-14.5) % Plt Count (130-400) K/uL MPV (9.4-12.4) fL Immature Gran % (Auto) % Neut % (Auto) % Lymph % (Auto) % [place] % (Auto) % Eos % (Auto) % Baso % (Auto) % Neut # (Auto) (1.40-6.50) K/uL Lymph # (Auto) (1.2-3.4) K/uL [place] # (Auto) (0.11-0.59) K/uL Eos # (Auto) (0-0.50) K/uL Baso # (Auto) (0-0.2) K/uL Immature Gran # (Auto) (0.01-0.20) K/uL Sodium (136-145) mmol/L Potassium (3.5-5.1) mmol/L Chloride (98-107) mmol/L Carbon Dioxide (21-32) mmol/L Anion Gap (3-11) BUN (6-23) mg/dl Creatinine (0.6-1.4) mg/dl Est Cr Clr Drug Dosing Est GFR ( Amer) ml/min Est GFR (Non-Af Amer) ml/min BUN/Creatinine Ratio (10-20) Glucose (70-99(Fasting)) mg/dl Estimat Average Glucose Pending Hemoglobin A1c Pending Lactate 0.8 (0.4-2.0) mmol/L Calcium (8.6-10.3) mg/dl Magnesium (1.7-2.4) mg/dl Total Bilirubin (0.2-1.0) mg/dl AST (13-39) U/L ALT (7-52) U/L Alkaline Phosphatase (34-104) U/L Total Protein (6.0-8.3) gm/dl Albumin (3.4-5.0) gm/dl Globulin (2.5-4.0) gm/dl Albumin/Globulin Ratio (0.9-2) Urine Color Urine Appearance (Clear) Urine pH (4.5-7.5) Ur Specific [place] (1.000-1.030) Urine Protein (Negative) Urine Glucose (UA) (Negative) Urine Ketones (Negative) Urine Blood (Negative) Urine Nitrite (Negative) Urine Bilirubin (Negative) Urine Urobilinogen (Negative) Ur Leukocyte Esterase (Negative) Urine WBC (Auto) (0-5) /hpf Urine RBC (Auto) (0-4) /hpf U Hyaline Cast (Auto) (0-5) /lpf U Epithel Cells (Auto) (0-5) /lpf Urine Bacteria (Auto) (Negative) Blood Type Pending Antibody Screen Pending 12/06/22 12/06/22 12/06/22 Range/Units 22:43 21:28 21:28 WBC 8.01 (4.8-10.8) K/ul RBC 3.19 L (4.70-6.10) M/uL Hgb 9.2 L (14.0-18.0) g/dl Hct 28.0 L (42.0-52.0) % MCV 87.8 (80.0-100.0) fL MCH 28.8 (25.0-34.0) pg MCHC 32.9 (32.0-36.0) g/dL RDW Std Deviation 43.5 (36.4-46.3) fL RDW Coeff of Gloria 13.5 (11.5-14.5) % Plt Count 235 (130-400) K/uL MPV 10.0 (9.4-12.4) fL Immature Gran % (Auto) 0.2 % Neut % (Auto) 81.6 % Lymph % (Auto) 12.6 % [place] % (Auto) 5.2 % Eos % (Auto) 0.2 % Baso % (Auto) 0.2 % Neut # (Auto) 6.52 H (1.40-6.50) K/uL Lymph # (Auto) 1.01 L (1.2-3.4) K/uL [place] # (Auto) 0.42 (0.11-0.59) K/uL Eos # (Auto) 0.02 (0-0.50) K/uL Baso # (Auto) 0.02 (0-0.2) K/uL Immature Gran # (Auto) 0.02 (0.01-0.20) K/uL Sodium 139 (136-145) mmol/L Potassium 4.0 (3.5-5.1) mmol/L Chloride 110 H (98-107) mmol/L Carbon Dioxide 22 (21-32) mmol/L Anion Gap 7 (3-11) BUN 30 H (6-23) mg/dl Creatinine 1.99 H (0.6-1.4) mg/dl Est Cr Clr Drug Dosing Not Reportable Est GFR ( Amer) 33.5 ml/min Est GFR (Non-Af Amer) 28.9 ml/min BUN/Creatinine Ratio 15.1 (10-20) Glucose 112 H (70-99(Fasting)) mg/dl Estimat Average Glucose Hemoglobin A1c Lactate (0.4-2.0) mmol/L Calcium 8.0 L (8.6-10.3) mg/dl Magnesium 1.8 (1.7-2.4) mg/dl Total Bilirubin 0.8 (0.2-1.0) mg/dl AST 16 (13-39) U/L ALT 15 (7-52) U/L Alkaline Phosphatase 36 (34-104) U/L Total Protein 5.5 L (6.0-8.3) gm/dl Albumin 3.0 L (3.4-5.0) gm/dl Globulin 2.5 (2.5-4.0) gm/dl Albumin/Globulin Ratio 1.2 (0.9-2) Urine Color Yellow Urine Appearance Clear (Clear) Urine pH 5.5 (4.5-7.5) Ur Specific [place] 1.020 (1.000-1.030) Urine Protein Trace H (Negative) Urine Glucose (UA) Negative (Negative) Urine Ketones Negative (Negative) Urine Blood Trace H (Negative) Urine Nitrite Negative (Negative) Urine Bilirubin Negative (Negative) Urine Urobilinogen Negative (Negative) Ur Leukocyte Esterase Negative (Negative) Urine WBC (Auto) 0 (0-5) /hpf Urine RBC (Auto) 0-4 (0-4) /hpf U Hyaline Cast (Auto) 1-5 (0-5) /lpf U Epithel Cells (Auto) 0-5 (0-5) /lpf Urine Bacteria (Auto) Negative (Negative) Blood Type Antibody Screen Diagnostic Findings ADDENDUM: 12/06/22 23:58 Call Doctor Regarding Other, called Dr. Harris on 12/06 23: 52 (-04:00) Electronically signed by: Danny Nichols MD Electronically signed by: Danny Nichols MD 12/06/22 23:39 PM ADDENDUM END Exam(s): CT ABDOMEN + PELVIS Without Contrast EXAM: CT Abdomen and Pelvis Without Intravenous Contrast CLINICAL HISTORY: Reason for exam: recent urinary retention s/p Barker, single kidney. TECHNIQUE: Axial computed tomography images of the abdomen and pelvis without intravenous contrast. Automated exposure control was utilized for the study. A dose lowering technique was utilized adhering to the principles of ALARA. COMPARISON: No relevant prior studies available. FINDINGS: Lung bases: Unremarkable. No mass. No consolidation. ABDOMEN: Liver: Unremarkable. Gallbladder and bile ducts: Unremarkable. No calcified stones. No ductal dilation. Pancreas: Unremarkable. No ductal dilation. Spleen: Unremarkable. No splenomegaly. Adrenals: Unremarkable. No mass. Kidneys and ureters: Right nephrectomy. Stomach and bowel: Unremarkable. No obstruction. No mucosal thickening. PELVIS: Appendix: No findings to suggest acute appendicitis. Bladder: Barker catheter terminates in the urinary bladder. No stones. Reproductive: Unremarkable as visualized. ABDOMEN and PELVIS: Intraperitoneal space: Free air in the abdomen, concerning for gastrointestinal perforation. Small bowel in the right lower quadrant demonstrates wall thickening and surrounding inflammation, concerning for perforation site. Surgical evaluation recommended. No significant fluid collection. Bones/joints: Degenerative changes of the spine. No acute fracture. No dislocation. Soft tissues: Unremarkable. Vasculature: Atherosclerotic changes of the aorta. No abdominal aortic aneurysm. Lymph nodes: Unremarkable. No enlarged lymph nodes. IMPRESSION: Free air in the abdomen, concerning for gastrointestinal perforation. Small bowel in the right lower quadrant demonstrates wall thickening and surrounding inflammation, concerning for perforation site. Surgical evaluation recommended.
[2022-12-07] MEDS ORDERED: SODIUM CHLORIDE 0.9% 1000ML 1,000 ML IV ONE ×2 (01:18→01:19)
[2022-12-07] MEDS ORDERED: PROPOFOL IV EMULSION 10 MG/ML 20 ML VIAL IV ONE (01:51)
[2022-12-07] MEDS ORDERED: SUGAMMADEX SODIUM 200 MG/2 ML VIAL IV ONE (01:51)
[2022-12-07] MEDS ORDERED: fentaNYL citrate PF 100 MCG/2 ML VIAL ONE ×2 (01:51→03:47)
[2022-12-07] MEDS ORDERED: PHENYLEPHRINE 100MCG/ML 5ML SYR ONE (01:51)
[2022-12-07] MEDS ORDERED: PHENYLEPHRINE HCL 10 MG/ML VIAL ONE (01:51)
[2022-12-07] MEDS ORDERED: ROCURONIUM BROMIDE 10 MG/ML 5 ML VIAL IV ONE (01:51)
[2022-12-07] MEDS ORDERED: ONDANSETRON INJ 2 MG/ML 2 ML VIAL ONE (01:51)
[2022-12-07] MEDS ORDERED: SUCCINYLCHOLINE CHLORIDE 20 MG/ML 10 ML VIAL IV ONE (01:51)
[2022-12-07] MEDS ORDERED: LIDOCAINE 2% 20 MG/ML 5 ML SYR IV ONE (01:51)
[2022-12-07] MEDS ORDERED: ALBUMIN HUMAN 5% 12.5 GM/250 ML VIAL IV ONE (01:54)
[2022-12-07] MEDS ORDERED: BUPIVACAINE 0.5 % 5 MG/1 ML MPF 30ML VIAL ONE (02:00)
--- NOTE | 2022-12-07 02:16 | Anesthesiology Consultation ---
Date of Service December 07, 2022 Assessment & Plan (1) Encounter for pre-operative examination: Chart Review Chart Review: Acceptable Risk for Surgery and Patient NOT seen in Pre Admission Testing patient had type and screen. no ecg done. will place on monitor and watch ST segments closely along for any dysrhythmias. Consults Requested none History Surgery Operation Date: 12/07/22 02:30 Proposed Procedures p Exploratory Laparotomy - Lauryn Alfonso MD Height/Weight Height: 5 ft 6 in Weight: 73.5 kg Allergies Allergy/AdvReac Type Severity Reaction Status Date / Time Iodinated Contrast Media Allergy Unknown renal Verified 12/06/22 22:08 complications Medications Home Medications Medication Instructions Recorded Confirmed Last Taken aspirin 81 mg chewable tablet 81 mg PO DAILY 12/06/22 12/06/22 Unknown atorvastatin 80 mg tablet 80 mg PO DAILY 12/06/22 12/06/22 Unknown clopidogrel 75 mg tablet 75 mg PO DAILY 12/06/22 12/06/22 Unknown ezetimibe 10 mg tablet 10 mg PO DAILY 12/06/22 12/06/22 Unknown metoprolol succinate 25 mg 12.5 mg PO QAM 12/06/22 12/06/22 Unknown tablet,extended release 24 hr multivitamin 1 tab PO DAILY 12/06/22 12/06/22 Unknown nitroglycerin 0.4 mg sublingual 0.4 mg sublingual UD PRN Chest Pain 12/06/22 12/06/22 Unknown tablet tamsulosin 0.4 mg capsule 0.4 mg PO QAM 12/06/22 12/06/22 Unknown Past Medical History Medical History (Updated 12/07/22 @ 02:30 by Ganga Fatima MD) Carotid artery disease Encounter for pre-operative examination Free intraperitoneal air Hypertension hx/o throat cancer, hypertension (now runs low per daughter), hld, history of AR many years ago (no stents in heart per daughter) Past Surgical History right nephrectomy, carotid artery stent (left), radiation for throat cancer Past Anesthesia History No Hx of Anesthesia Complications and No Family Hx of Anesthesia Complications History of PONV No Hx of PONV and No Hx of Motion Sickness Social History Smoking Status: Former smoker Do You Dip or Chew Tobacco: No Hx Alcohol Use: No Hx Substance Use: No Physical Exam Vital Signs Last Vital Signs Temp 36.5 C 12/06/22 21:12 Pulse 74 12/07/22 01:30 Resp 24 12/07/22 01:30 BP 132/68 12/07/22 01:30 Pulse Ox 94 12/07/22 01:01 O2 Del Method Room Air 12/06/22 22:08 Testing Laboratory Results 12/06/22 21:28 12/06/22 21:28 Urine Color Yellow 12/06/22 22:43 Urine Appearance Clear (Clear) 12/06/22 22:43 Urine pH 5.5 (4.5-7.5) 12/06/22 22:43 Ur Specific [place] 1.020 (1.000-1.030) 12/06/22 22:43 Urine Protein Trace (Negative) H 12/06/22 22:43 Urine Glucose (UA) Negative (Negative) 12/06/22 22:43 Urine Ketones Negative (Negative) 12/06/22 22:43 Urine Nitrite Negative (Negative) 12/06/22 22:43 Ur Leukocyte Esterase Negative (Negative) 12/06/22 22:43 Urine WBC (Auto) 0 /hpf (0-5) 12/06/22 22:43 Urine RBC (Auto) 0-4 /hpf (0-4) 12/06/22 22:43 U Hyaline Cast (Auto) 1-5 /lpf (0-5) 12/06/22 22:43 U Epithel Cells (Auto) 0-5 /lpf (0-5) 12/06/22 22:43 Urine Bacteria (Auto) Negative (Negative) 12/06/22 22:43 Blood Type A Negative 12/07/22 00:26 Antibody Screen NEGATIVE 12/07/22 00:26
[2022-12-07] MEDS ORDERED: ATROPINE SULFATE 0.1 MG/ML 10ML SYR IV PRN (03:50)
[2022-12-07] MEDS ORDERED: ePHEDrine sulfate 50 MG/ML AMP IV PRN (03:50)
[2022-12-07] MEDS ORDERED: fentaNYL citrate PF 100 MCG/2 ML VIAL IV PRN (03:50)
[2022-12-07] MEDS ORDERED: ONDANSETRON INJ 2 MG/ML 2 ML VIAL IV PRN (03:50)
--- NOTE | 2022-12-07 03:50 | Anesthesia Procedure Note ---
Anesthesia Procedure Note Arterial Line Note Date of procedure: 12/07/22 Consent: Risk / Benefits Reviewed With: PT / POA / Parent / Guardian, Accepts Plan, Informed Consent Obtained and All Questions Answered Monitors attached: Blood Pressure, CO2, EKG and Pulse Oximetry Oxygen delivery method: Mask Time out completed: Yes Premedication: None Laterality: Left Location: Radial Hand hygeine: Alcohol based hand rub Equipment/Supplies: Cap, Mask, Sterile gown, Sterile gloves, Sterile drapes and Sterile procedures used Skin prep: Chloraprep Local medication: 1% Lidocaine (ml) Ultrasound used: Yes US equipment and supplies: Sterile Gel and Sterile Probe Cover Attempts: 2 Procedure Summary: 20g angiocath. second attempt. first site with pressure dressing given that pt is on plavix. secured with benzoin and sterile dressing. taped in place. good waveform. done in OR prior to induction.m Post-Procedure: Pt hemodynamically stable, Pt tolerates well and No complication
--- NOTE | 2022-12-07 05:00 | Operative Report ---
Post Operative Report Pre & Post Diagnosis Operation Date: 12/07/22 02:30 Pre-Op Diagnosis: (1) Free intraperitoneal air Post-Op Diagnosis: (1) small volume of free air, inflamed loop of terminal ileum I identified the patient and participated in the time-out.: Yes Procedure Operation Date: 12/07/22 02:30 Actual Procedures p Exploratory Laparotomy, Bowel Resection(Not Applicable) - Lauryn Alfonso MD Surgeon Lauryn Alfonso MD Video Poker Floorman none Estimated Blood Loss 20 Findings Consistent with Post-Op Diagnosis cloudy fluid in abdomen, minimal air. Loop of small bowel in right lower quadrant was densely inflamed but no discrete source of inflammation seen. Appendix normal. Adhesions of omentum to right sided incision from prior kidney resection Fluids 700 cc IVF, 500 cc albumin Specimens ileum peritoneal fluid culture Drains none Anesthesia Type General Complications none Indications 87-year-old man who presented to the emergency room with urinary retention confusion and acute onset of abdominal pain yesterday. CT scan revealed free intraperitoneal air. He was noted to be in urinary retention. He had no evidence of leukocytosis. Lactate was normal. He was tender on examination. Given the presence of free air options were discussed. He elected to undergo surgical intervention. He was on plavix and aspirin due to high risk of stroke - understood risk of bleeding because of this. Description of Procedure The patient received Zosyn preoperatively. He had placement of a Barker catheter preoperatively. He had placement of sequential compression devices and an arterial line. After the induction of general endotracheal anesthesia, his abdomen was sterilely prepped and draped. After appropriate timeout a midline incision was made and carried through the fascia into the abdominal cavity. There was no gross egress of free air noted. There was cloudy fluid throughout the abdomen and a wound culture was taken. Initial inspection revealed dilated loops of fluid-filled bowel. The small bowel was identified at the ligament of Treitz and followed. In the terminal ileum area there was a loop of small bowel that was very inflamed and adherent to the surrounding tissue. This was bluntly broken up and brought up into the field. It was about a 6 inch area of dense inflammation. The surrounding bowel was normal. The colon palpated normal. The appendix was normal. There were no changes noted on the liver. The remainder of the abdominal exam was normal. A partial small bowel resection was then performed. Labs were placed around the bowel. Bowel clamps were used. A spot was chosen for division along the proximal to the area of abnormality. A fter checking that this had a good blood supply this was divided with a firing of the PEGGY 60 stapler. A similar spot was chosen distal to the area of inflammation. This was divided with a firing of the PEGGY stapler. The mesentery was taken with Vicryl ties. The small bowel was sent off the field as a specimen. A [id number] functional end-to-end anastomosis was then performed. Silk stay sutures were placed on the bowel. Through 2 small enterotomies a PEGGY 60 stapler was passed and a new lumen created. The enterotomy defect itself was closed with a firing of the TA stapler. The lumen appeared of adequate size and there was no bleeding noted. The mesenteric defect was closed with interrupted silk stitches. The abdomen was irrigated and suctioned till the effluent was clear. The omentum had been adherent to the right sided incision. This had been freed and was then brought to layer over the anastomosis. The abdomen was closed with 2 looped #1 PDS sutures. This was performed after counts were correct. The skin was closed with maria teresa. 30 cc of half percent Marcaine was injected for local anesthetic. The patient was taken intubated to the intensive care unit in stable condition. I attest to the content of the Intraoperative Record and any orders documented therein. Any exceptions are noted below.
--- NOTE | 2022-12-07 05:23 | Anesthesiology Progress Note ---
Date of Service December 07, 2022 Anesthesia Post Procedure Vital Signs Vital Signs: Temp Pulse Pulse Resp BP BP Pulse Ox 12/07/22 05:08 37.2 C 73 22 125/61 94 12/07/22 05:03 37.2 C 70 20 140/54 L 96 12/07/22 04:58 37.7 C H 72 23 137/64 95 12/07/22 01:30 74 24 12/07/22 01:30 132/68 12/07/22 01:01 73 27 H 94 12/07/22 01:01 135/60 12/07/22 01:00 73 22 97 12/07/22 00:30 74 25 H 95 12/07/22 00:30 147/77 H 12/07/22 00:00 70 20 94 12/07/22 00:00 153/68 H 12/06/22 23:30 67 22 95 12/06/22 23:30 150/62 H 12/06/22 23:00 64 18 94 12/06/22 23:00 132/74 12/06/22 22:30 66 21 91 12/06/22 22:30 116/64 12/06/22 22:29 67 22 91 12/06/22 22:08 70 20 123/64 93 12/06/22 21:12 36.5 C 104 H 18 83/51 L O2 Del Method O2 Flow Rate 12/07/22 05:08 Room Air 12/07/22 05:03 Oxymask 2 12/07/22 04:58 Oxymask 2 12/07/22 01:30 12/07/22 01:30 12/07/22 01:01 12/07/22 01:01 12/07/22 01:00 12/07/22 00:30 12/07/22 00:30 12/07/22 00:00 12/07/22 00:00 12/06/22 23:30 12/06/22 23:30 12/06/22 23:00 12/06/22 23:00 12/06/22 22:30 12/06/22 22:30 12/06/22 22:29 12/06/22 22:08 Room Air 12/06/22 21:12 Room Air Transfer of Care Handoff Completed per policy Notes Mental Status: alert / awake / arousable and participated in evaluation Patient Amnestic to Procedure: Yes Nausea / Vomiting: adequately controlled Pain: adequately controlled Airway Patency, RR, SpO2: stable & adequate BP & HR: stable & adequate Hydration State: stable & adequate Anesthetic Complications: no major complications apparent and Pt Satisfied with anesthetic care Notes: Patient moving all extremities. Awake and conversant with myself and nursing staff. Denies pain.
[2022-12-07] MEDS: HYDROmorphone INJ 0.5 MG/0.5 ML SYR IV PRN ×2 (05:43→18:48)
[2022-12-07] MEDS ORDERED: METOPROLOL TARTRATE 1 MG/ML VIAL IV SCH (06:00)
[2022-12-07] MEDS: SODIUM CHLORIDE 0.9% 1000ML 1,000 ML IV SCH ×2 (06:36→18:44)
[2022-12-07] MEDS: PIPERACILLIN/TAZOBACTAM 4.5 GM in DEXTROSE 5% 100 ML IV SCH ×3 (07:40→23:45)
[2022-12-07 07:57] LABS: Estimated Average Glucose 111 mg/dl; Hemoglobin A1C 5.5 % (4.5-5.6)
[2022-12-07] MEDS ORDERED: traMADol HCL 50 MG TABLET PO PRN (08:20)
[2022-12-07] MEDS ORDERED: ACETAMINOPHEN 325 MG TAB PO PRN (08:20)
--- NOTE | 2022-12-07 08:41 | XRay Report ---
XR chest 1V portable HISTORY: renal failure COMPARISON: Abdomen and pelvis CT 12/06/2022. FINDINGS: No pneumothorax. No pleural effusions. There is mild elevation the right hemidiaphragm. The heart is mildly enlarged. No focal lung consolidations to suggest a pneumonia. No evidence for pulmo nary edema. No pleural effusions. No pneumothorax. A right carotid stent is partially visualized. IMPRESSION: Mild cardiomegaly. Otherwise, no acute process within the chest. ACT 112: Negative or not required by law. Electronically signed by: Yosvany Salazar M.D. 12/07/2022 8:39 AM
[2022-12-07] MEDS: ATORVASTATIN 40 MG TAB PO SCH (10:42)
[2022-12-07] MEDS: EZETIMIBE 10 MG TABLET PO SCH (10:42)
[2022-12-07] MEDS: METOPROLOL SUCC 25MG EXT REL TAB PO SCH (10:42)
[2022-12-07] MEDS: TAMSULOSIN HCL 0.4 MG CAP PO SCH (10:42)
[2022-12-07] MEDS: MULTIVITAMIN TAB PO SCH (10:42)
[2022-12-07] MEDS: ASPIRIN 81 MG CHEW PO SCH (10:43)
[2022-12-07] MEDS: CLOPIDOGREL BISULFATE 75 MG TAB PO SCH (10:43)
--- NOTE | 2022-12-07 12:21 | Surgery Progress Note ---
Date of Service December 07, 2022 Assessment & Plan (1) Free intraperitoneal air: Plan: POD # 0 s/p ex lap with small bowel resection -avss - postop pain controlled - urinating via lance - NGT with bilious output, minimal - abdomen soft Plan: Pain management as needed keep NGT today Keep lance today Okay to resume plavix and aspirin given high stroke risk SCDs for dvt prophylaxis Incentive spirometry repeat am labs will likely need pt/ot continue medical management Discussed with dr. hampton who agrees with above. Admission and Anticipated Discharge Date Admission Date: December 07, 2022 Subjective feeling okay moderate pain at incision site but controlled no n,v no chest pain or shortness of breath sitting up at bedside, watching TV upon entering room Physical Exam Constitutional: WD/WN, vitals as above cooperative and comfortable; no acute distress and not ill appearing Neck: normal visual inspection and trachea midline Respiratory: normal respiratory effort, lungs clear to auscultation Cardiovascular: RRR, no murmur, no edema Gastrointestinal (Abdomen): Inspection/Auscultation: abdomen normal to inspection, + abdominal surgical incision (dressing clean/dry/intact) and + hypoactive bowel sounds; abdomen not distended and + abnormal bowel sounds Percussion/Palpation: + abdomen tender (at midline laparotomy incision) and abdomen soft; no guarding and abdomen not rigid NGT with bilious output Skin: no rashes, warm and dry Psychiatric: A+Ox3, euthymic affect Results & Data Vital Signs (Past 12 Hours) Vital Signs Temp Pulse Pulse Resp BP BP Pulse Ox 12/07/22 12:00 64 19 90 12/07/22 11:30 73 15 90 12/07/22 11:27 154/75 H 12/07/22 11:27 74 17 12/07/22 11:00 67 17 96 12/07/22 11:00 161/72 H 12/07/22 10:30 72 21 95 12/07/22 10:00 69 19 96 12/07/22 10:00 140/77 12/07/22 09:30 67 17 96 12/07/22 09:00 68 19 97 12/07/22 09:00 160/76 H 12/07/22 08:30 63 15 97 12/07/22 08:00 63 17 97 12/07/22 08:00 159/69 H 12/07/22 07:30 63 15 96 12/07/22 07:00 65 17 96 12/07/22 07:00 129/65 12/07/22 07:08 65 129/65 12/07/22 05:30 66 12/07/22 06:00 37.1 C 66 18 107/63 96 12/07/22 05:27 12/07/22 05:08 37.2 C 73 22 125/61 94 12/07/22 05:03 37.2 C 70 20 140/54 L 96 12/07/22 04:58 37.7 C H 72 23 137/64 95 12/07/22 01:30 74 24 12/07/22 01:30 132/68 12/07/22 01:01 73 27 H 94 12/07/22 01:01 135/60 12/07/22 01:00 73 22 97 12/07/22 00:30 74 25 H 95 12/07/22 00:30 147/77 H O2 Del Method O2 Flow Rate 12/07/22 12:00 12/07/22 11:30 12/07/22 11:27 12/07/22 11:27 12/07/22 11:00 12/07/22 11:00 12/07/22 10:30 12/07/22 10:00 12/07/22 10:00 12/07/22 09:30 12/07/22 09:00 12/07/22 09:00 12/07/22 08:30 12/07/22 08:00 12/07/22 08:00 12/07/22 07:30 12/07/22 07:00 12/07/22 07:00 12/07/22 07:08 12/07/22 05:30 12/07/22 06:00 Oxymask 2 12/07/22 05:27 Oxymask 2 12/07/22 05:08 Room Air 12/07/22 05:03 Oxymask 2 12/07/22 04:58 Oxymask 2 12/07/22 01:30 12/07/22 01:30 12/07/22 01:01 12/07/22 01:01 12/07/22 01:00 12/07/22 00:30 12/07/22 00:30 Laboratory Results 0412/07/22 12/07/22 Range/Units 05:57 00:45 00:26 WBC (4.8-10.8) K/ul RBC (4.70-6.10) M/uL Hgb (14.0-18.0) g/dl Hct (42.0-52.0) % MCV (80.0-100.0) fL MCH (25.0-34.0) pg MCHC (32.0-36.0) g/dL RDW Std Deviation (36.4-46.3) fL RDW Coeff of Gloria (11.5-14.5) % Plt Count (130-400) K/uL MPV (9.4-12.4) fL Immature Gran % (Auto) % Neut % (Auto) % Lymph % (Auto) % [place] % (Auto) % Eos % (Auto) % Baso % (Auto) % Neut # (Auto) (1.40-6.50) K/uL Lymph # (Auto) (1.2-3.4) K/uL [place] # (Auto) (0.11-0.59) K/uL Eos # (Auto) (0-0.50) K/uL Baso # (Auto) (0-0.2) K/uL Immature Gran # (Auto) (0.01-0.20) K/uL Sodium (136-145) mmol/L Potassium (3.5-5.1) mmol/L Chloride (98-107) mmol/L Carbon Dioxide (21-32) mmol/L Anion Gap (3-11) BUN (6-23) mg/dl Creatinine (0.6-1.4) mg/dl Est Cr Clr Drug Dosing Est GFR ( Amer) ml/min Est GFR (Non-Af Amer) ml/min BUN/Creatinine Ratio (10-20) Glucose (70-99(Fasting)) mg/dl Estimat Average Glucose 111 mg/dl Hemoglobin A1c 5.5 (4.5-5.6) % Lactate (0.4-2.0) mmol/L Calcium (8.6-10.3) mg/dl Magnesium (1.7-2.4) mg/dl Total Bilirubin (0.2-1.0) mg/dl AST (13-39) U/L ALT (7-52) U/L Alkaline Phosphatase (34-104) U/L Total Protein (6.0-8.3) gm/dl Albumin (3.4-5.0) gm/dl Globulin (2.5-4.0) gm/dl Albumin/Globulin Ratio (0.9-2) Urine Color Urine Appearance (Clear) Urine pH (4.5-7.5) Ur Specific [place] (1.000-1.030) Urine Protein (Negative) Urine Glucose (UA) (Negative) Urine Ketones (Negative) Urine Blood (Negative) Urine Nitrite (Negative) Urine Bilirubin (Negative) Urine Urobilinogen (Negative) Ur Leukocyte Esterase (Negative) Urine WBC (Auto) (0-5) /hpf Urine RBC (Auto) (0-4) /hpf U Hyaline Cast (Auto) (0-5) /lpf U Epithel Cells (Auto) (0-5) /lpf Urine Bacteria (Auto) (Negative) Nasal Screen MRSA (PCR) Negative (Negative) SARS-CoV-2, RNA, NAAT NEGATIVE (NEGATIVE) Blood Type Antibody Screen 12/07/22 12/07/22 12/06/22 Range/Units 00:26 00:26 22:43 WBC (4.8-10.8) K/ul RBC (4.70-6.10) M/uL Hgb (14.0-18.0) g/dl Hct (42.0-52.0) % MCV (80.0-100.0) fL MCH (25.0-34.0) pg MCHC (32.0-36.0) g/dL RDW Std Deviation (36.4-46.3) fL RDW Coeff of Gloria (11.5-14.5) % Plt Count (130-400) K/uL MPV (9.4-12.4) fL Immature Gran % (Auto) % Neut % (Auto) % Lymph % (Auto) % [place] % (Auto) % Eos % (Auto) % Baso % (Auto) % Neut # (Auto) (1.40-6.50) K/uL Lymph # (Auto) (1.2-3.4) K/uL [place] # (Auto) (0.11-0.59) K/uL Eos # (Auto) (0-0.50) K/uL Baso # (Auto) (0-0.2) K/uL Immature Gran # (Auto) (0.01-0.20) K/uL Sodium (136-145) mmol/L Potassium (3.5-5.1) mmol/L Chloride (98-107) mmol/L Carbon Dioxide (21-32) mmol/L Anion Gap (3-11) BUN (6-23) mg/dl Creatinine (0.6-1.4) mg/dl Est Cr Clr Drug Dosing Est GFR ( Amer) ml/min Est GFR (Non-Af Amer) ml/min BUN/Creatinine Ratio (10-20) Glucose (70-99(Fasting)) mg/dl Estimat Average Glucose mg/dl Hemoglobin A1c (4.5-5.6) % Lactate 0.8 (0.4-2.0) mmol/L Calcium (8.6-10.3) mg/dl Magnesium (1.7-2.4) mg/dl Total Bilirubin (0.2-1.0) mg/dl AST (13-39) U/L ALT (7-52) U/L Alkaline Phosphatase (34-104) U/L Total Protein (6.0-8.3) gm/dl Albumin (3.4-5.0) gm/dl Globulin (2.5-4.0) gm/dl Albumin/Globulin Ratio (0.9-2) Urine Color Yellow Urine Appearance Clear (Clear) Urine pH 5.5 (4.5-7.5) Ur Specific [place] 1.020 (1.000-1.030) Urine Protein Trace H (Negative) Urine Glucose (UA) Negative (Negative) Urine Ketones Negative (Negative) Urine Blood Trace H (Negative) Urine Nitrite Negative (Negative) Urine Bilirubin Negative (Negative) Urine Urobilinogen Negative (Negative) Ur Leukocyte Esterase Negative (Negative) Urine WBC (Auto) 0 (0-5) /hpf Urine RBC (Auto) 0-4 (0-4) /hpf U Hyaline Cast (Auto) 1-5 (0-5) /lpf U Epithel Cells (Auto) 0-5 (0-5) /lpf Urine Bacteria (Auto) Negative (Negative) Nasal Screen MRSA (PCR) (Negative) SARS-CoV-2, RNA, NAAT (NEGATIVE) Blood Type A Negative Antibody Screen NEGATIVE 12/06/22 12/06/22 Range/Units 21:28 21:28 WBC 8.01 (4.8-10.8) K/ul RBC 3.19 L (4.70-6.10) M/uL Hgb 9.2 L (14.0-18.0) g/dl Hct 28.0 L (42.0-52.0) % MCV 87.8 (80.0-100.0) fL MCH 28.8 (25.0-34.0) pg MCHC 32.9 (32.0-36.0) g/dL RDW Std Deviation 43.5 (36.4-46.3) fL RDW Coeff of Gloria 13.5 (11.5-14.5) % Plt Count 235 (130-400) K/uL MPV 10.0 (9.4-12.4) fL Immature Gran % (Auto) 0.2 % Neut % (Auto) 81.6 % Lymph % (Auto) 12.6 % [place] % (Auto) 5.2 % Eos % (Auto) 0.2 % Baso % (Auto) 0.2 % Neut # (Auto) 6.52 H (1.40-6.50) K/uL Lymph # (Auto) 1.01 L (1.2-3.4) K/uL [place] # (Auto) 0.42 (0.11-0.59) K/uL Eos # (Auto) 0.02 (0-0.50) K/uL Baso # (Auto) 0.02 (0-0.2) K/uL Immature Gran # (Auto) 0.02 (0.01-0.20) K/uL Sodium 139 (136-145) mmol/L Potassium 4.0 (3.5-5.1) mmol/L Chloride 110 H (98-107) mmol/L Carbon Dioxide 22 (21-32) mmol/L Anion Gap 7 (3-11) BUN 30 H (6-23) mg/dl Creatinine 1.99 H (0.6-1.4) mg/dl Est Cr Clr Drug Dosing Not Reportable Est GFR ( Amer) 33.5 ml/min Est GFR (Non-Af Amer) 28.9 ml/min BUN/Creatinine Ratio 15.1 (10-20) Glucose 112 H (70-99(Fasting)) mg/dl Estimat Average Glucose mg/dl Hemoglobin A1c (4.5-5.6) % Lactate (0.4-2.0) mmol/L Calcium 8.0 L (8.6-10.3) mg/dl Magnesium 1.8 (1.7-2.4) mg/dl Total Bilirubin 0.8 (0.2-1.0) mg/dl AST 16 (13-39) U/L ALT 15 (7-52) U/L Alkaline Phosphatase 36 (34-104) U/L Total Protein 5.5 L (6.0-8.3) gm/dl Albumin 3.0 L (3.4-5.0) gm/dl Globulin 2.5 (2.5-4.0) gm/dl Albumin/Globulin Ratio 1.2 (0.9-2) Urine Color Urine Appearance (Clear) Urine pH (4.5-7.5) Ur Specific [place] (1.000-1.030) Urine Protein (Negative) Urine Glucose (UA) (Negative) Urine Ketones (Negative) Urine Blood (Negative) Urine Nitrite (Negative) Urine Bilirubin (Negative) Urine Urobilinogen (Negative) Ur Leukocyte Esterase (Negative) Urine WBC (Auto) (0-5) /hpf Urine RBC (Auto) (0-4) /hpf U Hyaline Cast (Auto) (0-5) /lpf U Epithel Cells (Auto) (0-5) /lpf Urine Bacteria (Auto) (Negative) Nasal Screen MRSA (PCR) (Negative) SARS-CoV-2, RNA, NAAT (NEGATIVE) Blood Type Antibody Screen
--- NOTE | 2022-12-07 19:03 | Hospitalist Progress Note ---
Date of Service December 07, 2022 Assessment & Plan (1) Hypotension: Plan: Transient hypotension possibly from hypovolemia secondary to bowel perforation No overt sepsis for now (2) Small bowel perforation: Plan: Status post explore laparotomy, bowel resection December 07, [address] 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 Seen resting in bed, sleeping but easily awakened, oriented x3, answers all questions appropriately, comfortable, in good spirits States he has some soreness over his abdomen, but otherwise feels okay overall Denies nausea or vomiting, fevers or chills, chest pain, shortness of breath, dizziness No BMs yet No other symptom Review of Systems Review of Systems: all noted and negative except for above Physical Exam Physical Exam: General- oriented x 3, not in distress, speaks in sentences with no effort or accessory muscle use Head- atraumatic Eyes- PERRL, EOMI, anicteric ENT- oropharynx clear Neck- supple, no JVD, no adenopathy, no thyromegaly; carotids +2/2, no bruits appreciated Lungs- clear to auscultation bilaterally, no rales/wheezes Heart- normal rate, regular rhythm; no murmur, no gallop, no rub appreciated Abdomen- normal bowel sounds, dressing in place, no bleeding or discharge, nondistended, soft, nontender, no masses or hepatosplenomegaly Extremities- no pretibial edema, no calf tenderness; peripheral pulses intact Neuro- alert, oriented x 3; CN 2-12 grossly intact; motor 5/5 bilaterally;sensation 100% on all extremities; no other gross focal neurologic deficits Skin- warm & dry Results & Data Results & Data Vital Signs (Past 12 Hours) Vital Signs Temp Pulse Pulse Resp BP BP Pulse Ox 12/07/22 17:12 37.2 C 69 22 116/56 L 93 12/07/22 12:00 64 19 90 12/07/22 11:30 73 15 90 12/07/22 11:27 154/75 H 12/07/22 11:27 74 17 12/07/22 11:00 67 17 96 12/07/22 11:00 161/72 H 12/07/22 10:30 72 21 95 12/07/22 10:00 69 19 96 12/07/22 10:00 140/77 12/07/22 09:30 67 17 96 12/07/22 09:00 68 19 97 12/07/22 09:00 160/76 H 12/07/22 08:30 63 15 97 12/07/22 08:00 63 17 97 12/07/22 08:00 159/69 H 12/07/22 07:30 63 15 96 12/07/22 07:00 65 17 96 12/07/22 07:00 129/65 12/07/22 07:08 65 129/65 O2 Del Method O2 Flow Rate 12/07/22 17:12 Nasal Cannula 2 12/07/22 12:00 12/07/22 11:30 12/07/22 11:27 12/07/22 11:27 12/07/22 11:00 12/07/22 11:00 12/07/22 10:30 12/07/22 10:00 12/07/22 10:00 12/07/22 09:30 12/07/22 09:00 12/07/22 09:00 12/07/22 08:30 12/07/22 08:00 12/07/22 08:00 12/07/22 07:30 12/07/22 07:00 12/07/22 07:00 12/07/22 07:08 all noted and reviewed including below
[2022-12-08 06:15] LABS: Basophils # (auto) 0.01 K/uL (0-0.2); Basophils % (auto) 0.1 %; Eosinophils # (auto) 0.01 K/uL (0-0.50); Eosinophils % (auto) 0.1 %; Hematocrit (blood only) 25.8 % (42.0-52.0); Hemoglobin 8.4 g/dl (14.0-18.0); Immature Granulocytes # (auto) 0.03 K/uL (0.01-0.20); Immature Granulocytes % (auto) 0.3 %; Lymphocytes % (auto) 7.2 %; Mean Corpuscular Hemoglobin 28.5 pg (25.0-34.0); Mean Corpuscular Hgb Conc 32.6 g/dL (32.0-36.0); Mean Corpuscular Volume 87.5 fL (80.0-100.0); Mean Platelet Volume 9.8 fL (9.4-12.4); Monocytes # (auto) 0.67 K/uL (0.11-0.59); Neutrophils # (auto) 9.65 K/uL (1.40-6.50); Neutrophils % (auto) 86.3 %; Platelet Count 206 K/uL (130-400); RDW Coefficient of Variation 13.2 % (11.5-14.5); RDW Standard Deviation 42.1 fL (36.4-46.3); Red Blood Count 2.95 M/uL (4.70-6.10); White Blood Count 11.17 K/ul (4.8-10.8)
[2022-12-08 06:35] LABS: BUN Creatinine Ratio 18.5 (10-20); Calcium 8.2 mg/dl (8.6-10.3); Creatinine Clr Calc Pharmacy 26.1 ml/min; Est GFR (African American) 39.7 ml/min; Est GFR (Non-African American) 34.2 ml/min; Potassium 4.4 mmol/L (3.5-5.1)
[2022-12-08] MEDS: PIPERACILLIN/TAZOBACTAM 4.5 GM in DEXTROSE 5% 100 ML IV SCH ×2 (08:01→15:44)
[2022-12-08] MEDS: SODIUM CHLORIDE 0.9% 1000ML 1,000 ML IV SCH (08:02)
--- NOTE | 2022-12-08 12:11 | Surgery Progress Note ---
Date of Service December 08, 2022 Assessment & Plan (1) Free intraperitoneal air: Plan: POD # 1 s/p ex lap with small bowel resection -avss - postop pain controlled and minimal - urinating via lance - NGT with bilious output, minimal - abdomen soft - no return of bowel function yet - creatinine improving Plan: Pain management as needed discontinue NGT Lance removal to be determined by medicine team given preop urinary retention but okay from surgical standpoint continue plavix and aspirin given high stroke risk SCDs for dvt prophylaxis Incentive spirometry repeat am labs continue medical management Discussed with dr. hampton who agrees with above. Admission and Anticipated Discharge Date Admission Date: December 07, 2022 Subjective feeling good minimal pain not taking any pain medication no n,v no bloating no flatus yet ambulating room lance still present no chest pain or shortness of breath no fevers or chills Physical Exam Constitutional: WD/WN, vitals as above cooperative and comfortable; no acute distress and not ill appearing Neck: normal visual inspection and trachea midline Respiratory: normal respiratory effort; no respiratory distress Gastrointestinal (Abdomen): Inspection/Auscultation: abdomen normal to inspection and + hypoactive bowel sounds; abdomen not distended and + abnormal bowel sounds Percussion/Palpation: + abdomen tender (upper mid abdomen superior aspect of incision) and abdomen soft; no guarding and abdomen not rigid NGT with minimal brown green output in cannister Skin: no rashes, warm and dry Psychiatric: A+Ox3, euthymic affect Results & Data Vital Signs (Past 12 Hours) Vital Signs Temp Pulse Pulse Resp BP Pulse Ox O2 Del Method 12/08/22 11:58 36.8 C 69 19 153/76 H 91 Nasal Cannula 12/08/22 08:00 62 12/08/22 08:00 Nasal Cannula 12/08/22 08:15 37.0 C 66 19 146/68 H 90 Nasal Cannula 12/08/22 03:00 37.1 C 64 21 134/66 90 Nasal Cannula O2 Flow Rate 12/08/22 11:58 3.0 12/08/22 08:00 12/08/22 08:00 4 12/08/22 08:15 3.0 12/08/22 03:00 3 Laboratory Results 12/08/22 12/08/22 Range/Units 05:48 05:48 WBC 11.17 H (4.8-10.8) K/ul RBC 2.95 L (4.70-6.10) M/uL Hgb 8.4 L (14.0-18.0) g/dl Hct 25.8 L (42.0-52.0) % MCV 87.5 (80.0-100.0) fL MCH 28.5 (25.0-34.0) pg MCHC 32.6 (32.0-36.0) g/dL RDW Std Deviation 42.1 (36.4-46.3) fL RDW Coeff of Gloria 13.2 (11.5-14.5) % Plt Count 206 (130-400) K/uL MPV 9.8 (9.4-12.4) fL Immature Gran % (Auto) 0.3 % Neut % (Auto) 86.3 % Lymph % (Auto) 7.2 % [place] % (Auto) 6.0 % Eos % (Auto) 0.1 % Baso % (Auto) 0.1 % Neut # (Auto) 9.65 H (1.40-6.50) K/uL Lymph # (Auto) 0.80 L (1.2-3.4) K/uL [place] # (Auto) 0.67 H (0.11-0.59) K/uL Eos # (Auto) 0.01 (0-0.50) K/uL Baso # (Auto) 0.01 (0-0.2) K/uL Immature Gran # (Auto) 0.03 (0.01-0.20) K/uL Sodium 140 (136-145) mmol/L Potassium 4.4 (3.5-5.1) mmol/L Chloride 112 H (98-107) mmol/L Carbon Dioxide 21 (21-32) mmol/L Anion Gap 7 (3-11) BUN 32 H (6-23) mg/dl Creatinine 1.73 H (0.6-1.4) mg/dl Est Cr Clr Drug Dosing 26.1 ml/min Est GFR ( Amer) 39.7 ml/min Est GFR (Non-Af Amer) 34.2 ml/min BUN/Creatinine Ratio 18.5 (10-20) Glucose 97 (70-99(Fasting)) mg/dl Calcium 8.2 L (8.6-10.3) mg/dl
[2022-12-08] MEDS ORDERED: COUGH DROP (SUGAR FREE) LOZ 24 LOZ/1 BOX BUCCAL ONE (12:19)
[2022-12-08] MEDS: CLOPIDOGREL BISULFATE 75 MG TAB PO SCH (12:35)
[2022-12-08] MEDS: METOPROLOL SUCC 25MG EXT REL TAB PO SCH (12:35)
[2022-12-08] MEDS: MULTIVITAMIN TAB PO SCH (12:37)
[2022-12-08] MEDS: TAMSULOSIN HCL 0.4 MG CAP PO SCH (12:37)
[2022-12-08] MEDS: ATORVASTATIN 40 MG TAB PO SCH (12:37)
[2022-12-08] MEDS: EZETIMIBE 10 MG TABLET PO SCH (12:38)
[2022-12-08] MEDS: ASPIRIN 81 MG CHEW PO SCH (12:38)
--- NOTE | 2022-12-08 14:48 | Hospitalist Progress Note ---
Date of Service December 08, 2022 Assessment & Plan (1) Small bowel perforation: Plan: Status post explore laparotomy, bowel resection December 07, [address] 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 Seen sleeping, but easily awakened Comfortable, not in distress, in good spirits States he feels fine overall Denies abdominal pain, nausea or vomiting, fevers or chills no chest pain, dyspnea, palpitations, dizziness Appetite is okay No BMs yet No other new symptom Review of Systems Review of Systems: all noted and negative except for above Physical Exam Physical Exam: General- oriented x 3, not in distress, speaks in sentences with no effort or accessory muscle use Eyes- anicteric Neck- no JVD Lungs- clear breath sounds bilaterally, no rales/wheezes Heart- normal rate, regular rhythm; no murmurs Abdomen- normal bowel sounds, nondistended, soft, nontender Midline surgical scar healing well, maria teresa in place, no bleeding or discharge Extremities- no pretibial edema, no calf tenderness Neuro- alert, oriented x 3; no gross focal neurologic deficits Skin- warm & dry Results & Data Results & Data Vital Signs (Past 12 Hours) Vital Signs Temp Pulse Pulse Resp BP Pulse Ox O2 Del Method 12/08/22 11:58 36.8 C 69 19 153/76 H 91 Nasal Cannula 12/08/22 08:00 62 12/08/22 08:00 Nasal Cannula 12/08/22 08:15 37.0 C 66 19 146/68 H 90 Nasal Cannula 12/08/22 03:00 37.1 C 64 21 134/66 90 Nasal Cannula O2 Flow Rate 12/08/22 11:58 3.0 12/08/22 08:00 12/08/22 08:00 4 12/08/22 08:15 3.0 12/08/22 03:00 3 all noted and reviewed including below
[2022-12-09] MEDS: PIPERACILLIN/TAZOBACTAM 4.5 GM in DEXTROSE 5% 100 ML IV SCH ×2 (00:04→08:23)
[2022-12-09 06:36] LABS: Basophils # (auto) 0.04 K/uL (0-0.2); Basophils % (auto) 0.4 %; Eosinophils # (auto) 0.89 K/uL (0-0.50); Hematocrit (blood only) 25.3 % (42.0-52.0); Hemoglobin 8.2 g/dl (14.0-18.0); Immature Granulocytes # (auto) 0.04 K/uL (0.01-0.20); Immature Granulocytes % (auto) 0.4 %; Lymphocytes # (auto) 1.31 K/uL (1.2-3.4); Lymphocytes % (auto) 13.2 %; Mean Corpuscular Hemoglobin 28.2 pg (25.0-34.0); Mean Corpuscular Hgb Conc 32.4 g/dL (32.0-36.0); Mean Corpuscular Volume 86.9 fL (80.0-100.0); Mean Platelet Volume 9.5 fL (9.4-12.4); Monocytes # (auto) 0.87 K/uL (0.11-0.59); Monocytes % (auto) 8.8 %; Neutrophils # (auto) 6.75 K/uL (1.40-6.50); Neutrophils % (auto) 68.2 %; Platelet Count 227 K/uL (130-400); RDW Coefficient of Variation 12.9 % (11.5-14.5); RDW Standard Deviation 41.4 fL (36.4-46.3); Red Blood Count 2.91 M/uL (4.70-6.10)
[2022-12-09 08:09] LABS: BUN Creatinine Ratio 16.7 (10-20); Calcium 8.1 mg/dl (8.6-10.3); Creatinine Clr Calc Pharmacy 25.1 ml/min; Est GFR (African American) 37.8 ml/min; Est GFR (Non-African American) 32.6 ml/min; Potassium 3.9 mmol/L (3.5-5.1)
[2022-12-09] MEDS: CLOPIDOGREL BISULFATE 75 MG TAB PO SCH (08:24)
[2022-12-09] MEDS: MULTIVITAMIN TAB PO SCH (08:24)
[2022-12-09] MEDS: METOPROLOL SUCC 25MG EXT REL TAB PO SCH (08:24)
[2022-12-09] MEDS: EZETIMIBE 10 MG TABLET PO SCH (08:24)
[2022-12-09] MEDS: TAMSULOSIN HCL 0.4 MG CAP PO SCH (08:25)
[2022-12-09] MEDS: ATORVASTATIN 40 MG TAB PO SCH (08:25)
[2022-12-09] MEDS: ASPIRIN 81 MG CHEW PO SCH (08:27)
[2022-12-09] MEDS: cefTRIAXone SODIUM 2,000 MG in DEXTROSE 5% 50 ML IV SCH (10:38)
--- NOTE | 2022-12-09 14:46 | Hospitalist Progress Note ---
Date of Service December 09, 2022 Assessment & Plan (1) Small bowel perforation: Plan: Status post explore laparotomy, bowel resection December 07, [address] Lauryn Alfonso Peritonitis, POA Peritoneal clx with E coli intermediate to zosyn -Patient is recovering well postoperatively. Blood cultures negative. Peritoneal culture with E. coli intermediate to Zosyn. 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 Defer to primary team Disposition-per primary team Update- Updated daughter at bedside Admission and Anticipated Discharge Date Admission Date: December 07, 2022 Subjective Patient was seen and examined at bedside in presence of daughter. He feels good. Denies pain. Tolerating clears without issues. Has some cough, which is his baseline. No fever, chills, chest pain, shortness of breath, nausea or vomiting. Has some throat discomfort due to NG yesterday and on lozenges. Passed gas. Review of Systems Review of Systems: All systems reviewed & are unremarkable except as noted in Subjective Physical Exam Physical Exam: General: Sitting comfortably in chair, not in distress, on room air HEENT: EOMI, RIVERA, MMM Chest: Clear breath sounds bilaterally, no wheezes or crackles CVS: Regular rate and rhythm, normal heart sounds, no murmur Abdomen: Soft, surgical incision wound+ with no discharge, bowel sounds + Neuro: Awake, alert, oriented, conversing well, non focal Extremities: No cyanosis, clubbing or edema : Lance with malvin urine Results & Data Results & Data Vital Signs (Past 12 Hours) Vital Signs Temp Pulse Pulse Resp BP Pulse Ox Pulse Ox 12/09/22 12:03 36.3 C L 68 16 91/55 L 92 12/09/22 11:51 93 12/09/22 11:36 67 12/09/22 10:37 93 12/09/22 08:28 37.0 C 70 18 122/65 93 12/09/22 07:41 12/09/22 03:24 37.2 C 70 14 124/68 95 Pulse Ox O2 Del Method O2 Flow Rate 12/09/22 12:03 Room Air 12/09/22 11:51 12/09/22 11:36 12/09/22 10:37 95 12/09/22 08:28 Nasal Cannula 2.0 12/09/22 07:41 Nasal Cannula 2 12/09/22 03:24 Nasal Cannula 3 Laboratory Results Short CBC 12/09/22 Range/Units 05:54 WBC 9.90 (4.8-10.8) K/ul Hgb 8.2 L (14.0-18.0) g/dl Hct 25.3 L (42.0-52.0) % Plt Count 227 (130-400) K/uL BMP 12/09/22 05:54 Sodium 137 Potassium 3.9 Chloride 109 H Carbon Dioxide 20 L BUN 30 H Creatinine 1.80 H Glucose 86 Calcium 8.1 L Medications Administered Current Inpatient Medications Acetaminophen (Acetaminophen 325 Mg Tab) 650 mg PO Q6H PRN PRN Reason: Fever/pain Stop: 01/06/23 08:19 Aspirin (Aspirin 81 Mg Chew) 81 mg PO DAILY [facility] Stop: 01/06/23 08:59 Last Admin: 12/09/22 08:27 Dose: 81 mg Atorvastatin Calcium (Atorvastatin 40 Mg Tab) 80 mg PO DAILY [facility] Stop: 01/06/23 08:59 Last Admin: 12/09/22 08:25 Dose: 80 mg Clopidogrel Bisulfate (Clopidogrel Bisulfate 75 Mg Tab) 75 mg PO DAILY [facility] Stop: 01/06/23 08:59 Last Admin: 12/09/22 08:24 Dose: 75 mg Ezetimibe (Ezetimibe 10 Mg Tablet) 10 mg PO DAILY [facility] Stop: 01/06/23 08:59 Last Admin: 12/09/22 08:24 Dose: 10 mg Hydromorphone HCl (Hydromorphone Inj 0.5 Mg/0.5 Ml Syr) 0.25 mg IV Q6H PRN PRN Reason: Pain Stop: 12/21/22 00:35 Last Admin: 12/07/22 18:48 Dose: 0.25 mg Promethazine HCl 6.25 mg/ (Sodium Chloride) 50.25 mls @ 201 mls/hr IV Q6H PRN PRN Reason: Nausea And Vomiting Stop: 01/06/23 00:35 Ceftriaxone Sodium 2,000 mg/ (Dextrose) 70 mls @ 140 mls/hr IV Q24H [facility]; Protocol Stop: 12/19/22 10:59 Last Infusion: 12/09/22 11:31 Dose: Infused Metronidazole (Flagyl) 500 mg in 100 mls @ 100 mls/hr IV Q8H [facility]; Protocol Stop: 12/19/22 15:59 Metoprolol Succinate (Metoprolol Succ 25mg Ext Rel Tab) [facility] [place]: 01/06/23 08:59 Last Admin: 12/09/22 08:24 Dose: 12.5 mg Multivitamins (Multivitamin Tab) 1 tab PO DAILY [facility] Stop: 01/06/23 08:59 Last Admin: 12/09/22 08:24 Dose: 1 tab Tamsulosin HCl (Tamsulosin Hcl 0.4 Mg Cap) 0.4 mg PO QAM [facility] Stop: 01/06/23 08:59 Last Admin: 12/09/22 08:25 Dose: 0.4 mg Tramadol HCl (Tramadol Hcl 50 Mg Tablet) 25 - 50 mg PO Q4H PRN PRN Reason: Pain Stop: 01/06/23 08:19 Last Admin: 12/07/22 10:41 Dose: 50 mg
--- NOTE | 2022-12-09 15:31 | Surgery Progress Note ---
Date of Service December 09, 2022 Assessment & Plan (1) Free intraperitoneal air: Plan: POD # 2 s/p ex lap with small bowel resection -avss - postop pain controlled and minimal - urinating via lance - abdomen soft - creatinine improving Plan: Pain management as needed Advance to soft diet Lance removal to be determined by medicine team given preop urinary retention but okay from surgical standpoint continue plavix and aspirin given high stroke risk SCDs for dvt prophylaxis Incentive spirometry repeat am labs continue medical management Admission and Anticipated Discharge Date Admission Date: December 07, 2022 Subjective Feeling better today. Tolerating clears. Physical Exam Gastrointestinal (Abdomen): Inspection/Auscultation: abdomen normal to inspection; abdomen not distended Percussion/Palpation: + abdomen tender (upper mid abdomen superior aspect of incision) and abdomen soft; no guarding and abdomen not rigid Results & Data Vital Signs (Past 12 Hours) Vital Signs Temp Pulse Pulse Resp BP Pulse Ox Pulse Ox 12/09/22 12:03 36.3 C L 68 16 91/55 L 92 12/09/22 11:51 93 12/09/22 11:36 67 12/09/22 10:37 93 12/09/22 08:28 37.0 C 70 18 122/65 93 12/09/22 07:41 Pulse Ox O2 Del Method O2 Flow Rate 12/09/22 12:03 Room Air 12/09/22 11:51 12/09/22 11:36 12/09/22 10:37 95 12/09/22 08:28 Nasal Cannula 2.0 12/09/22 07:41 Nasal Cannula 2
[2022-12-09] MEDS: metroNIDAZOLE 500 MG/100 ML BAG IV SCH ×2 (15:35→23:11)
[2022-12-10] MEDS: TAMSULOSIN HCL 0.4 MG CAP PO SCH (09:10)
[2022-12-10] MEDS: METOPROLOL SUCC 25MG EXT REL TAB PO SCH (09:10)
[2022-12-10] MEDS: MULTIVITAMIN TAB PO SCH (09:10)
[2022-12-10] MEDS: ATORVASTATIN 40 MG TAB PO SCH (09:10)
[2022-12-10] MEDS: metroNIDAZOLE 500 MG/100 ML BAG IV SCH (09:10)
[2022-12-10] MEDS: CLOPIDOGREL BISULFATE 75 MG TAB PO SCH (09:10)
[2022-12-10] MEDS: EZETIMIBE 10 MG TABLET PO SCH (09:11)
[2022-12-10] MEDS: ASPIRIN 81 MG CHEW PO SCH (09:17)
[2022-12-10 09:42] LABS: Basophils # (auto) 0.03 K/uL (0-0.2); Basophils % (auto) 0.3 %; Eosinophils # (auto) 1.18 K/uL (0-0.50); Eosinophils % (auto) 11.5 %; Hematocrit (blood only) 28.5 % (42.0-52.0); Hemoglobin 9.2 g/dl (14.0-18.0); Immature Granulocytes # (auto) 0.05 K/uL (0.01-0.20); Immature Granulocytes % (auto) 0.5 %; Lymphocytes # (auto) 1.06 K/uL (1.2-3.4); Lymphocytes % (auto) 10.4 %; Mean Corpuscular Hemoglobin 27.9 pg (25.0-34.0); Mean Corpuscular Hgb Conc 32.3 g/dL (32.0-36.0); Mean Corpuscular Volume 86.4 fL (80.0-100.0); Mean Platelet Volume 9.3 fL (9.4-12.4); Monocytes # (auto) 0.76 K/uL (0.11-0.59); Monocytes % (auto) 7.4 %; Neutrophils # (auto) 7.16 K/uL (1.40-6.50); Neutrophils % (auto) 69.9 %; Platelet Count 278 K/uL (130-400); RDW Coefficient of Variation 13.2 % (11.5-14.5); RDW Standard Deviation 41.7 fL (36.4-46.3); White Blood Count 10.24 K/ul (4.8-10.8)
[2022-12-10 09:54] LABS: BUN Creatinine Ratio 14.9 (10-20); Calcium 8.2 mg/dl (8.6-10.3); Creatinine Clr Calc Pharmacy 25.8 ml/min; Est GFR (African American) 39.1 ml/min; Est GFR (Non-African American) 33.8 ml/min; Potassium 3.7 mmol/L (3.5-5.1)
--- NOTE | 2022-12-10 11:01 | Surgery Progress Note ---
Date of Service December 10, 2022 Assessment & Plan (1) Free intraperitoneal air: Plan: POD # 3 s/p ex lap with small bowel resection - avss, no leukocytosis - postop pain minimal to none today - +return of bowel function - creatinine improving Plan: Pain management as needed Advance to low fiber diet transition to PO Bactrim based on sensitivities, does not need another IV Placed SCDs for dvt prophylaxis Incentive spirometry continue medical management Can likely discharge home tomorrow will need follow-up in office end of next week for staple removal Dr. Wynne has seen patient and agrees with above. Admission and Anticipated Discharge Date Admission Date: December 07, 2022 Subjective feeling well, sitting up in chair daughter present in room had loose bowel movements x 3, passing gas, tolerated full liquids no n,v no chest pain or shortness of breath able to urine on own since lance removed no fevers or chills Physical Exam Constitutional: WD/WN, vitals as above not ill appearing Respiratory: normal respiratory effort; no respiratory distress Gastrointestinal (Abdomen): Inspection/Auscultation: abdomen normal to inspection, + abdominal surgical incision (clean/dry/intact , maria teresa intact) and + hypoactive bowel sounds; abdomen not distended and + abnormal bowel sounds Percussion/Palpation: abdomen soft; abdomen nontender, no guarding and abdomen not rigid Skin: no rashes, warm and dry Psychiatric: A+Ox3, euthymic affect Results & Data Vital Signs (Past 12 Hours) Vital Signs Temp Pulse Pulse Resp BP Pulse Ox O2 Del Method 12/10/22 07:47 72 12/10/22 07:17 36.9 C 82 16 101/63 92 Room Air 12/10/22 03:40 37.1 C 65 18 156/61 H 94 Room Air Laboratory Results 12/10/22 12/10/22 Range/Units 08:47 08:47 WBC 10.24 (4.8-10.8) K/ul RBC 3.30 L (4.70-6.10) M/uL Hgb 9.2 L (14.0-18.0) g/dl Hct 28.5 L (42.0-52.0) % MCV 86.4 (80.0-100.0) fL MCH 27.9 (25.0-34.0) pg MCHC 32.3 (32.0-36.0) g/dL RDW Std Deviation 41.7 (36.4-46.3) fL RDW Coeff of Gloria 13.2 (11.5-14.5) % Plt Count 278 (130-400) K/uL MPV 9.3 L (9.4-12.4) fL Immature Gran % (Auto) 0.5 % Neut % (Auto) 69.9 % Lymph % (Auto) 10.4 % [place] % (Auto) 7.4 % Eos % (Auto) 11.5 % Baso % (Auto) 0.3 % Neut # (Auto) 7.16 H (1.40-6.50) K/uL Lymph # (Auto) 1.06 L (1.2-3.4) K/uL [place] # (Auto) 0.76 H (0.11-0.59) K/uL Eos # (Auto) 1.18 H (0-0.50) K/uL Baso # (Auto) 0.03 (0-0.2) K/uL Immature Gran # (Auto) 0.05 (0.01-0.20) K/uL Sodium 137 (136-145) mmol/L Potassium 3.7 (3.5-5.1) mmol/L Chloride 110 H (98-107) mmol/L Carbon Dioxide 21 (21-32) mmol/L Anion Gap 6 (3-11) BUN 26 H (6-23) mg/dl Creatinine 1.75 H (0.6-1.4) mg/dl Est Cr Clr Drug Dosing 25.8 ml/min Est GFR ( Amer) 39.1 ml/min Est GFR (Non-Af Amer) 33.8 ml/min BUN/Creatinine Ratio 14.9 (10-20) Glucose 128 H (70-99(Fasting)) mg/dl Calcium 8.2 L (8.6-10.3) mg/dl
--- NOTE | 2022-12-10 11:32 | Hospitalist Progress Note ---
Date of Service December 10, 2022 Assessment & Plan (1) Small bowel perforation: Plan: Status post exploratory laparotomy, bowel resection December 07, [address] Lauryn Alfonso Peritonitis, POA Peritoneal clx with E coli intermediate to zosyn -Patient is recovering well postoperatively. Blood cultures negative. Peritoneal culture with E. coli intermediate to Zosyn. - s/p zosyn 12/09-> ceftriaxone/Metron as per sensitivity results -Diet, activities, DVT prophylaxis, pain management per primary team Hypertension -BP well controlled, on low-dose Toprol with hold parameters Chronic diastolic heart failure (EF 58%, TTE 2019) -Euvolemic CKD 3b- Cr stable at baseline of around 1.8. 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 Defer to primary team Disposition-per primary team. Patient is stable from hospitalist perspective. Admission and Anticipated Discharge Date Admission Date: December 07, 2022 Subjective Patient was seen and examined at bedside. He feels good. He is doing voiding without issues after Barker was removed yesterday. He had 3 bowel movements today. Tolerating diet well. Denies any pain. He feels ready to go home. Review of Systems Review of Systems: All systems reviewed & are unremarkable except as noted in Subjective Physical Exam Physical Exam: General: Sitting comfortably in chair, not in distress, on room air HEENT: EOMI, RIVERA, MMM Chest: Clear breath sounds bilaterally, no wheezes or crackles CVS: Regular rate and rhythm, normal heart sounds, no murmur Abdomen: Soft, surgical incision wound clean with maria teresa intact, no tenderness, bowel sounds + Neuro: Awake, alert, oriented, conversing well, non focal Extremities: No cyanosis, clubbing or edema Results & Data Results & Data Vital Signs (Past 12 Hours) Vital Signs Temp Pulse Pulse Resp BP Pulse Ox O2 Del Method 12/10/22 07:47 72 12/10/22 07:17 36.9 C 82 16 101/63 92 Room Air 12/10/22 03:40 37.1 C 65 18 156/61 H 94 Room Air Laboratory Results Short CBC 12/10/22 Range/Units 08:47 WBC 10.24 (4.8-10.8) K/ul Hgb 9.2 L (14.0-18.0) g/dl Hct 28.5 L (42.0-52.0) % Plt Count 278 (130-400) K/uL BMP 12/10/22 08:47 Sodium 137 Potassium 3.7 Chloride 110 H Carbon Dioxide 21 BUN 26 H Creatinine 1.75 H Glucose 128 H Calcium 8.2 L Medications Administered Current Inpatient Medications Acetaminophen (Acetaminophen 325 Mg Tab) 650 mg PO Q6H PRN PRN Reason: Fever/pain Stop: 01/06/23 08:19 Last Admin: 12/09/22 15:42 Dose: 650 mg Aspirin (Aspirin 81 Mg Chew) 81 mg PO DAILY [facility] Stop: 01/06/23 08:59 Last Admin: 12/10/22 09:17 Dose: 81 mg Atorvastatin Calcium (Atorvastatin 40 Mg Tab) 80 mg PO DAILY [facility] Stop: 01/06/23 08:59 Last Admin: 12/10/22 09:10 Dose: 80 mg Clopidogrel Bisulfate (Clopidogrel Bisulfate 75 Mg Tab) 75 mg PO DAILY [facility] Stop: 01/06/23 08:59 Last Admin: 12/10/22 09:10 Dose: 75 mg Ezetimibe (Ezetimibe 10 Mg Tablet) 10 mg PO DAILY [facility] Stop: 01/06/23 08:59 Last Admin: 12/10/22 09:11 Dose: 10 mg Hydromorphone HCl (Hydromorphone Inj 0.5 Mg/0.5 Ml Syr) 0.25 mg IV Q6H PRN PRN Reason: Pain Stop: 12/21/22 00:35 Last Admin: 12/07/22 18:48 Dose: 0.25 mg Promethazine HCl 6.25 mg/ (Sodium Chloride) 50.25 mls @ 201 mls/hr IV Q6H PRN PRN Reason: Nausea And Vomiting Stop: 01/06/23 00:35 Ceftriaxone Sodium 2,000 mg/ (Dextrose) 70 mls @ 140 mls/hr IV Q24H [facility]; Protocol Stop: 12/19/22 10:59 Last Infusion: 12/09/22 11:31 Dose: Infused Metronidazole (Flagyl) 500 mg in 100 mls @ 100 mls/hr IV Q8H [facility]; Protocol Stop: 12/19/22 15:59 Last Infusion: 12/10/22 10:28 Dose: Infused Metoprolol Succinate (Metoprolol Succ 25mg Ext Rel Tab) 12.5 mg PO QAM [facility] Stop: 01/06/23 08:59 Last Admin: 12/10/22 09:10 Dose: 12.5 mg Multivitamins (Multivitamin Tab) 1 tab PO DAILY [facility] Stop: 01/06/23 08:59 Last Admin: 12/10/22 09:10 Dose: 1 tab Tamsulosin HCl (Tamsulosin Hcl 0.4 Mg Cap) [facility] [place]: 01/06/23 08:59 Last Admin: 12/10/22 09:10 Dose: 0.4 mg Tramadol HCl (Tramadol Hcl 50 Mg Tablet) 25 - 50 mg PO Q4H PRN PRN Reason: Pain Stop: 01/06/23 08:19 Last Admin: 12/07/22 10:41 Dose: 50 mg
[2022-12-10] MEDS: cefTRIAXone SODIUM 2,000 MG in DEXTROSE 5% 50 ML IV SCH (12:09)
[2022-12-10] MEDS: SULFAMETHOXAZOLE/TRIMETHOPRIM DS 800/160MG TAB PO SCH (12:58)
[2022-12-11] MEDS: METOPROLOL SUCC 25MG EXT REL TAB PO SCH (07:44)
[2022-12-11] MEDS: TAMSULOSIN HCL 0.4 MG CAP PO SCH (07:44)
[2022-12-11] MEDS: ATORVASTATIN 40 MG TAB PO SCH (07:45)
[2022-12-11] MEDS: MULTIVITAMIN TAB PO SCH (07:45)
[2022-12-11] MEDS: CLOPIDOGREL BISULFATE 75 MG TAB PO SCH (07:45)
[2022-12-11] MEDS: EZETIMIBE 10 MG TABLET PO SCH (07:45)
[2022-12-11] MEDS: ASPIRIN 81 MG CHEW PO SCH (07:48)
[2022-12-11] MEDS: SULFAMETHOXAZOLE/TRIMETHOPRIM DS 800/160MG TAB PO SCH (10:42)
--- NOTE | 2022-12-11 10:45 | Discharge Summary ---
Date of Service December 11, 2022 Admission HPI Per Admitting Provider History obtained from patient, family, and records. 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 2 nights ago, patient experienced achy lower abdominal pain with diarrhea after coming home from a celebration. Patient not sure if there was blood in the stools. Patient denies headache, chest pain, SOB. Patient consulted ER for worsening symptoms. IV Zosyn administered for perforated bowel on CT. Initial SBP at the ER noted to be 80s. SBP currently 120s. Medical History as above Surgical History : Nephrectomy right, cataract surgeries, vascular procedure, endarterectomy Family History : Heart disease, lung cancer Personal/Social history : Past tobacco abuse, occasional EtOH intake, retired [employer] employee Admission Exam Per Admitting Provider GENERAL: Comfortable, hard of hearing, dysphonic (chronic), looks younger than stated age, no respiratory distress SKIN: Pallor, warm HEENT: Bespectacled, pale palpebral conjunctivae, no ptosis, dry buccal mucosa NECK : Supple, no tenderness CHEST : CTA, no tenderness HEART : RRR, systolic murmur ABDOMEN: Some distention, hypogastric tenderness EXTREMITIES : No LE swelling/tenderness, no other conspicuous deformities noted NEUROLOGIC : Coherent, no facial asymmetry, hard of hearing, chronic dysphonia, no other gross focality Principal Diagnosis Bowel perforation status post exploratory laparotomy and bowel resection, peritonitis, CKD 3B Discharge Exam General: Sitting comfortably in chair, not in distress, on room air HEENT: EOMI, RIVERA, MMM Chest: Clear breath sounds bilaterally, no wheezes or crackles CVS: Regular rate and rhythm, normal heart sounds, no murmur Abdomen: Soft, surgical incision wound clean with maria teresa intact, no tenderness, bowel sounds + Neuro: Awake, alert, oriented, conversing well, non focal Extremities: No cyanosis, clubbing or edema Discharge Data Allergies Allergy/AdvReac Type Severity Reaction Status Date / Time Iodinated Contrast Media Allergy Unknown renal Verified 12/06/22 22:08 complications Consultations 12/06/22 23:53 ED Decision to Admit Stat 12/07/22 01:30 Consult General Surgery Routine Procedures Performed Operation Date: 12/07/22 02:30 Actual Procedures p Exploratory Laparotomy, Bowel Resection(Not Applicable) - Lauryn Alfonso MD Ordered Studies 12/06/22 23:01 CT abd pelvis wo con Stat Hospital Course (1) Small bowel perforation: Status post exploratory laparotomy, bowel resection December 07, [address] Lauryn Alfonso Peritonitis, POA Peritoneal clx with E coli intermediate to zosyn -Recovering remarkably well postoperatively. Blood cultures negative. Peritoneal culture with E. coli intermediate to Zosyn. - s/p zosyn 12/09-> ceftriaxone/Metron- > Bactrim (renally dosed) per surgery as per sensitivity results - Cleared by surgery and therapy to discharge home. F/u with surgery as OP. Hypertension -BP well controlled, on low-dose Toprol with hold parameters Chronic diastolic heart failure (EF 58%, TTE 2019) -Euvolemic CKD 3b- Cr stable at baseline of around 1.8. valvular heart disease (mild to moderate /mild MR) carotid artery disease status post stent/endarterectomy hyperlipidemia on statin Rx RCCA status post surgery history laryngeal cancer status post radiation CRI, creatinine at baseline chronic anemia, hemoglobin at baseline Patient is comfortable and stable for discharge home with home health. Being discharged on Bactrim, renally dosed for 5 more days to complete antibiotic course. Home Health Attestation I certify that this patient is under my care and that I, or a physicians application assistant working with me, had a face to-face encounter that meets the home health [id number] encounter requirements with this patient. The encounter with the patient was in whole, or in part, for the following medical condition, which is the primary reason for home health care (list medical condition): I certify that, based on my findings, the following services are medically necessary home health services: My clinical findings support the need for the above services because: Further, I certify that my clinical findings support that this patient is homebound (i.e. absences from home require considerable and taxing effort and are for medical reasons or jain services or infrequently or of short duration when for other reasons) because: Certification for Home Health Services: Based on the above findings, I certify that this patient is confined to the home and needs intermittent intermediate care, physical therapy and/or speech therapy or continues to need occupational therapy. The patient is under my care, and I have initiated the establishment of the plan of care. This patient will be followed by a physician who will periodically review the plan of care. Total Time Total Time Spent Total Time Spent (In Minutes): 45 Discharge Plan Discharge Items Patient Disposition: Home - Home Health Services Reason For Visit: TRANSIENT HYPOTENSION, PERF BOWEL Discharge Diagnosis: Bowel perforation s/p exploratory laparotomy and bowel resection, peritonitis, CKD3b Activity: Resume your previous activity Non-emergency contact: Primary Care Provider and Surgeon Call non-emergency contact if: you have any medication questions, your symptoms worsen, your pain is concerning for you and you have a fever Follow-up/Referrals: Lauryn Alfonso MD [Physician] - 12/17/22 11:00 am (Please arrive for your appt by 10:45) Ryan Butler DO [Primary Care Provider] - 12/16/22 9:40 am (Date & Time 12/16/2022 9:40 AM Provider Ryan Butler DO Department [facility] [address], [place] ) Diet: Regular Addtl Attending Provider Instructions: Continue bactrim once daily for 5 more days starting tomorrow at noon time.. Follow up with your family doctor and surgeon in a week Call your doctor immediately if fever, chills, abdominal pain or discharge etc. Pending Studies at Discharge: No Stand-Alone Forms: [facility], Smoking Cessation Medications and DC Order Prescriptions: New sulfamethoxazole-trimethoprim [Bactrim DS] 800-160 mg Tablet 1 tab PO Q24H 5 Days Qty: 5 0RF Rx Instructions: starting tomorrow Continued atorvastatin 80 mg Tablet 80 mg PO DAILY nitroglycerin 0.4 mg Tablet, Sublingual 0.4 mg sublingual UD PRN (Reason: Chest Pain) Rx Instructions: place 1 tab under tongue as needed for chest pain. may repeat 3 times. if chest pain continues,call 911 clopidogrel 75 mg Tablet 75 mg PO DAILY tamsulosin 0.4 mg Capsule 0.4 mg PO QAM metoprolol succinate 25 mg Tablet Extended Release 24 Hr 12.5 mg PO QAM ezetimibe 10 mg Tablet 10 mg PO DAILY multivitamin Tablet 1 tab PO DAILY aspirin 81 mg Tablet,Chewable 81 mg PO DAILY Rx Instructions: take with food Discharge Orders: Discharge Order (Routine); Ordered 12/11/22 Ordered By: Titus Grant/Other Patient Handouts: Exploratory Laparotomy Admission Data Admit Date/Time: 12/07/22 00:34 Attending Provider: Titus Schneider Admit Provider: Lawrence Silva Primary Care Provider: Ryan Butler Other Providers: Lawrence Silva ; Lauryn Alfonso Other Interventions: Discharge Summary Assessment (RN) Last Done: 12/11/22 10:20
--- NOTE | 2022-12-11 13:45 | Surgery Progress Note ---
Date of Service December 11, 2022 Assessment & Plan (1) Free intraperitoneal air: Plan: POD # 4 s/p ex lap with small bowel resection - avss, no leukocytosis - postop pain non - +return of bowel function Plan: Okay from surgical standpoint for discharge discharge instructions reviewed and provided follow-up with Dr. Alfonso next for staple removal Admission and Anticipated Discharge Date Admission Date: December 07, 2022 Subjective patient seen early this morning on rounds patient dressed and ready for discharge Feeling great no pain, n, v tolerated low fiber diet Physical Exam Constitutional: WD/WN, vitals as above cooperative and comfortable; no acute distress and not ill appearing Respiratory: normal respiratory effort; no respiratory distress Skin: no rashes, warm and dry Psychiatric: A+Ox3, euthymic affect Results & Data Vital Signs (Past 12 Hours) Vital Signs Temp Pulse Resp BP Pulse Ox O2 Del Method 12/11/22 10:20 36.9 C 78 18 156/66 H 92 12/11/22 07:41 36.9 C 78 18 156/66 H 92 Room Air 12/11/22 03:50 37.2 C 66 18 136/72 91 Room Air
== END 2022-12-11 11:18 | disposition home health service (06) | DRG 329 ==
LOC: ED 20:50 → SUATTDRO 12-07 00:34 → 1E 12-07 00:34 → 2E 12-07 12:38